=== PATIENT | female | born 1970 | race Caucasian/White ===

== ENCOUNTER → 2019-08-08 | Outpatient (CLI) | payer OTHER ==
--- NOTE | 2019-08-09 11:16 | MM ---
Reason for exam: screening (asymptomatic). Last mammogram was performed 3 years and 4 months ago. History: Patient is postmenopausal and history of other cancer. Physical Findings: A clinical breast exam by your physician is recommended on an annual basis and results should be correlated with mammographic findings. MG 3D Screening Mammo W/Cad Bilateral CC and MLO view(s) were taken. Prior study comparison: April 15, 2016, bilateral MG 3d screening mammo w/cad. April 06, 2014, bilateral MG screening mammo w CAD. Medial far posterior left breast focal asymmetry appears new. ASSESSMENT: Incomplete: need additional imaging evaluation, BI-RAD 0 RECOMMENDATION: Special view mammogram of the left breast. (3D) If lesion persists on supplemental views, image directed ultrasound is recommended. [facility] will attempt to contact patient to return for supplemental views and ultrasound if indicated.
== END | disposition home or self-care (01) ==
LOC: RADMAMWWP 09:22
PROVIDERS: ATTEND Family Medicine
DX: Z12.31 Encounter for screening mammogram for malignant neoplasm of breast (principal)
CPT/HCPCS: 77063; 77067

== ENCOUNTER → 2019-08-22 | Outpatient (CLI) | payer OTHER ==
--- NOTE | 2019-08-22 11:28 | ECHOS ---
STRESS ECHOCARDIOGRAM DATE OF SERVICE: 08/22/2019 INDICATIONS: Chest pain. MEDICATIONS: BASELINE HEART RATE: 92 BASELINE BLOOD PRESSURE: 110/55 MAXIMUM HEART RATE: 154 MAXIMUM BLOOD PRESSURE: 135/77 85% MPHR: 145 100% MPHR: 171 METS: 8.5 MAXIMUM STAGE REACHED: III TOTAL EXERCISE TIME: 7 minutes 15 seconds CLINICAL INFORMATION: STRESS DATA: Heart rate 92, pressure is 110/55 mmHg. Baseline EKG showed sinus mechanism. The patient exercised on the treadmill according to Ezekiel protocol for a total of 7 minutes and 15 seconds and achieved 8.5 METs. Max heart rate was 154, which is about 90% of maximum predicted heart rate. Maximum blood pressure was 135/77 mmHg. Clinically the patient did not have any chest pain or discomfort but she developed shortness of breath in response to exercise. The EKG did not show any significant ST or T-wave abnormalities concerning for ischemia. ECHOCARDIOGRAM IMAGES: Echocardiogram images from parasternal long axis view, parasternal short axis view, apical 4 chamber and apical 2 chamber view were obtained as the baseline images, at the peak of the heart rate as well as on recovery and the echocardiogram images showed good augmentation in the left ventricular systolic function without any evidence of wall motion abnormalities concerning for ischemia. CONCLUSION: 1. Excellent exercise tolerance. 2. Normal EKG in response to exercise. 3. Normal echocardiogram in response to exercise. 4. Essentially normal stress echocardiogram for the patient. MMODL / IJN: [id number] /
== END | disposition home or self-care (01) ==
LOC: RADNMMAIN 09:41
PROVIDERS: ATTEND Family Medicine
DX: R07.9 Chest pain, unspecified (principal)
CPT/HCPCS: 93351

== ENCOUNTER → 2019-08-23 | Outpatient (CLI) | payer OTHER ==
--- NOTE | 2019-08-24 13:07 | MM ---
Reason for exam: additional evaluation requested from abnormal screening. Last mammogram was performed less than 1 month ago. History: Patient is postmenopausal and history of other cancer. Physical Findings: Nurse did not find any significant physical abnormalities on exam. MG 3D Work Up W/Cad LT Spot compression XCCM, spot compression LM, and LM view(s) were taken of the left breast. Prior study comparison: August 08, 2019, bilateral MG 3d screening mammo w/cad. April 15, 2016, bilateral MG 3d screening mammo w/cad. The breast tissue is heterogeneously dense. This may lower the sensitivity of mammography. Finding: There is a 12 mm equal density (isodense) mass in the upper inner quadrant of the left breast. These results were verbally communicated with the patient and result sheet given to the patient on 08/23/19. ASSESSMENT: Incomplete: need additional imaging evaluation, BI-RAD 0 RECOMMENDATION: Ultrasound of the left breast.
--- NOTE | 2019-08-24 13:08 | USB ---
Reason for exam: additional evaluation requested from abnormal screening. History: Patient is postmenopausal and history of other cancer. US Breast Workup Limited LT Left limited breast ultrasound including focal area of concern, retroareolar and axilla demonstrates a 0.6 x 0.4 x 0.6cm mixed lesion at 9 o'clock. These results were verbally communicated with the patient and result sheet given to the patient on 08/23/19. ASSESSMENT: Suspicious, BI-RAD 4 RECOMMENDATION: Ultrasound core biopsy of the left breast. Called office with mammographic findings and has scheduled an appointment for the patient for 09/12/19 at 3:[address] Jeffers. Biopsy scheduled for 09/05/19 at 12:20. PRELIMINARY REPORT CALLED AND FAXED TO DR. JEFFERS ON 08/23/19.
== END | disposition home or self-care (01) ==
LOC: RADMAMWWP 13:25
PROVIDERS: ATTEND Family Medicine
DX: R92.8 Other abnormal and inconclusive findings on diagnostic imaging of breast (principal)
CPT/HCPCS: 77061; 77065

== ENCOUNTER → 2019-09-05 | Day surgery (SDC) | payer OTHER ==
[2019-09-05 11:27] VITALS: RESP 16
[2019-09-05 14:05] VITALS: BP 108/72; PULSE 64; TEMP 97.6
--- NOTE | 2019-09-05 16:03 | USB ---
EXAMINATION TYPE: US biopsy breast VAD LT, Postprocedure MG diagnostic mammo LT wo CAD DATE OF EXAM: 09/05/2019 CLINICAL HISTORY: 48-year-old female R92.8 ABNORMAL MAMMOGRAM. TECHNIQUE: Ultrasound guided core biopsy of the left breast COMPARISON: 08/08/2019 and 08/23/2019 FINDINGS: The procedure of ultrasound guided core biopsy was explained to the patient. Benefits, alternatives, and risks were discussed. An informed consent was then obtained. The targeted area, 9:00 position of the left breast was reidentified. However, this has decreased in size in the interval currently measuring 4 x 3 x 2 mm versus 6 x 6 x 4 mm, previously. Currently, it also appears more cystic, possible small cyst cluster. Decision is made to proceed with biopsy and clip placement to determine mammographic correlation. The patient was placed in supine positioning for imaging and for the procedure. The overlying skin was prepped and draped in usual sterile fashion. Lidocaine was used as anesthetic into the skin and subcutaneous tissue up to area of concern in the 9:00 left breast. Under ultrasound guidance, a 13-gauge vacuum-assisted mammotome Elite biopsy gun was used to obtain 4 core samples. The cystic area decompressed after the first pass. Following this, a wing clip was left at the site of biopsy. The patient tolerated the procedure well without any immediate complication. The patient was kept in the radiology department for short stay after the procedure and then discharged home in stable condition. Postprocedure mammogram shows the clip at the 9 o'clock position at the site of a subtle focal asymmetry on the 08/08/2019 mammogram but located more anterior than the intended mammographic target. IMPRESSION: Uncomplicated ultrasound guided core biopsy of suspected tiny cyst cluster in the 9:00 left breast. Clip placement shows that this is discordant with the intended focal asymmetry. As ultrasound shows no additional abnormality in this region, if results from this biopsy are benign, six-month follow-up mammogram can be performed. Full pathology results to follow. Pathology Results: Benign LEFT BREAST, SITE NOT OTHERWISE SPECIFIED (CORE BIOPSIES): Non-proliferative fibrocystic changes. Recommendation Follow up mammogram of the left breast in 6 months. SHANTHI
== END ==
LOC: RADUSWWP 11:00
PROVIDERS: ATTEND Family Medicine
DX: N60.12 Diffuse cystic mastopathy of left breast (principal); R92.8 Other abnormal and inconclusive findings on diagnostic imaging of breast
CPT/HCPCS: 88305; 77065; 19083; A4648; J2001

== ENCOUNTER → 2019-10-10 | Day surgery (SDC) | payer OTHER ==
[2019-10-07 14:45] VITALS: BMI 31.6
[~2019-10-10] MED LIST: LACTATED RINGERS 1,000 ML IV SCH; MIDAZOLAM 2 MG/2 ML VIAL ONE; ONDANSETRON 4 MG/2 ML VIAL IVP ONE; PROPOFOL 10 MG/ML 20 ML VIAL IV ONE; fentaNYL (PF) 50 MCG/ML 2 ML AMP ONE
[2019-10-10 11:46] VITALS: RESP 16; TEMP 97.3
--- NOTE | 2019-10-10 12:43 | P.PCN ---
Date of Procedure: 10/10/19 Description of Procedure: BRIEF HISTORY: Patient is a 49-year-old female presenting for outpatient colonoscopy for screening for malignant neoplasm of the colon. No prior colonoscopies. No family history of colon cancer. No change in bowel habits, blood per rectum or abdominal pain. PROCEDURE PERFORMED: Colonoscopy with polypectomy. PREOPERATIVE DIAGNOSIS: Screening for malignant neoplasm of the colon, no prior colonoscopy. ESTIMATED BLOOD LOSS: Minimal. IV sedation per Anesthesia. PROCEDURE: After informed consent was obtained, the patient, was brought into the endoscopy unit. IV sedation was administered by Anesthesia under continuous monitoring. Digital rectal examination was normal. Initially the Olympus CF-190 flexible video colonoscope was then inserted in the rectum, gradually advanced into the cecum without any difficulty. Careful examination was performed as the scope was gradually being withdrawn. Ileocecal valve and the appendiceal orifice were visualized and appeared normal. Prep was excellent. Mucosa of the cecum, ascending colon, transverse colon, descending colon, sigmoid colon, and rectum appeared normal. Diminutive 2 mm rectal polyp removed with cold forcep polypectomy. Retroflexion was performed in the rectum and no lesions were seen, low-grade internal hemorrhoids noted. The patient tolerated the procedure well. IMPRESSION: Diminutive 2 mm rectal polyp removed with cold forceps. Low-grade internal hemorrhoids. RECOMMENDATIONS: Findings of this examination were discussed with the patient and her family. Okay to resume diet. Okay to resume medications. Await pathology from polypectomy. Anticipate repeat colonoscopy in 5-10 years pending pathology from polypectomy.
[2019-10-10 13:09] VITALS: BP 105/66; PULSE 71
== END ==
LOC: ORWHC2ENDO 11:22
PROVIDERS: ATTEND Internal Medicine
DX: Z12.11 Encounter for screening for malignant neoplasm of colon (principal); K62.1 Rectal polyp; I20.9 Angina pectoris, unspecified; F17.210 Nicotine dependence, cigarettes, uncomplicated; R00.2 Palpitations; E66.9 Obesity, unspecified; M19.90 Unspecified osteoarthritis, unspecified site; Z98.890 Other specified postprocedural states; Z68.31 Body mass index [BMI] 31.0-31.9, adult; Z98.51 Tubal ligation status
CPT/HCPCS: 88305; 45380; J2250; J2405; J3010; J2704

== ENCOUNTER → 2020-08-15 | Outpatient (CLI) | payer BC ==
--- NOTE | 2020-08-15 10:07 | MM ---
Reason for exam: additional evaluation requested from prior study. Last mammogram was performed 11 months ago. History: Patient is postmenopausal and history of other cancer. Benign US biopsy breast VAD LT of the left breast, September 05, 2019. Physical Findings: Nurse did not find any significant physical abnormalities on exam. MG 3D Diag Mammo W/Cad TAD Bilateral CC and MLO view(s) were taken. Prior study comparison: September 05, 2019, left breast MG diagnostic mammo LT wo CAD. August 23, 2019, left breast MG 3d work up w/cad LT. August 08, 2019, bilateral MG 3d screening mammo w/cad. April 15, 2016, bilateral MG 3d screening mammo w/cad. There are scattered fibroglandular densities. No significant new findings when compared with previous films. These results were verbally communicated with the patient and result sheet given to the patient on 08/15/20. ASSESSMENT: Benign, BI-RAD 2 RECOMMENDATION: Follow-up diagnostic mammogram of both breasts in 1 year.
== END | disposition home or self-care (01) ==
LOC: RADMAMWWP 08:47
PROVIDERS: ATTEND Family Medicine
DX: R92.8 Other abnormal and inconclusive findings on diagnostic imaging of breast (principal)
CPT/HCPCS: 77062; 77066

== ENCOUNTER → 2021-04-05 | Day surgery (SDC) | payer BC ==
[2021-04-03 15:49] VITALS: BMI 34.9
[~2021-04-05] MED LIST changes: +BUPIVACAINE (PF) 0.25% 30 ML VIAL SQ ONE; +DEXAMETHASONE SOD PHOSPHATE 4 MG/ML 1 ML VIAL IV ONE; +FAMOTIDINE 20 MG/2 ML VIAL IVP ONE; +HYDROcodone/APAP 5-325MG 1 EACH TAB ONE; +HYDROcodone/APAP 5-325MG 1 EACH TAB PO ONE; +HYDROmorphone (PF) 1 MG/ML ONE; +HYDROmorphone 1 MG/ML 1 ML SYRINGE ONE; +KETOROLAC 15 MG/ML 1 ML VIAL IVP ONE; +LACTATED RINGERS 1,000 ML IV ONE; -LACTATED RINGERS 1,000 ML IV SCH; +LIDOCAINE 1% (10MG/ML) FOR IV START INTRADERMA ONE; +LIDOCAINE 1% INJ 10MG/ML (20 ML MDV) ONE; +MIDAZOLAM 2 MG/2 ML VIAL IV PRN; +MIDAZOLAM 2 MG/2 ML VIAL IVP ONE; +ONDANSETRON 4 MG/2 ML VIAL ONE; +SCOPOLAMINE 1.5MG/72HR PATCH TRANSDERM ONE; +ceFAZolin 1,000 MG in SODIUM CHLORIDE 0.9% 1,000 ML IRRIGATION ONE
[2021-04-05] MEDS: LACTATED RINGERS 1,000 ML IV SCH ×2 (11:35→16:43)
[2021-04-05] MEDS: HYDROmorphone 0.5 MG/0.5 ML SYRINGE IVP PRN ×4 (11:36→14:42)
[2021-04-05 11:48] VITALS: RESP 16
[2021-04-05 14:14] VITALS: TEMP 97.3
[2021-04-05 15:38] VITALS: BP 117/80; PULSE 82
--- NOTE | 2021-04-05 16:24 | P.OP ---
Date of Procedure: 04/05/21 Preoperative Diagnosis: Hallux rigidus right foot Postoperative Diagnosis: Same Procedure(s) Performed: First metatarsal phalangeal joint arthrodesis right foot Implants: 1 crosscheck first metatarsal phalangeal joint arthrodesis plate screws 1 mL of AlloMatrix Anesthesia: DORCAS Surgeon: Javi Claire Estimated Blood Loss (ml): 3 Pathology: none sent Condition: stable Disposition: PACU Indications for Procedure: Painful hallux rigidus unresponsive to conservative treatment Operative Findings: Severe degeneration of the articular cartilage of the first metatarsal head and base of the proximal phalanx great toe. Significant osteophytic formation on the dorsal aspect of the first metatarsal head and base of the proximal phalanx Description of Procedure: The patient was brought into the operative room placed on table supine position. Timeout was taken to confirm correct patient identifiers, correct procedure, and correct site of surgery. When the room was in agreement the patient was induced and placed under general anesthetic. A well-padded tourniquet was placed on the right ankle. Then 20 mL 0.25% Marcaine was injected as right ankle block. And then the right foot was prepped and draped usual manner. The right foot was exsanguinated and the tourniquet inflated to 250 mmHg. Attention directed over the dorsomedial aspect of the first metatarsal phalangeal joint where a linear incision was made between the long extensor tendon and the neurovascular structures. The incision was deepened down to the saphenous tissue careful to identify, avoid, and retract any neurovascular structures and cauterize any bleeding vessels. Dissection was continued through the saphenous layer both medially and laterally to allow exposure to the joint. A capsulotomy was performed just medial to the extensor tendon. All soft tissue was removed from the base of the proximal phalanx as well as the head of the first metatarsal. Initial observation showed significant thinning of the articular cartilage on both surfaces of the joint and exuberant osteophytic formation dorsally and medially and the first metatarsal head as well as a dorsal aspect of the proximal phalanx. A sagittal saw was used to resect all the osteophytes. And all of the roughened edges were smoothed with a hand rasp. The joint was then distracted and a guidewire inserted the central aspect of the first metatarsal head which was then advanced into medullary canal parallel to the long axis. 20 mm concave reamer was then used to remove the subchondral bone and remaining articular cartilage to expose bleeding medullary bone. The guidewire was removed and was then used to fenestrate the joint surfaces to promote bleeding and bony ingrowth. Then the guidewire was inserted the base of the proximal phalanx centrally located advanced into the medullary canal parallel to the long access. The convex reamer was then used to remove the Subchondral bone and remaining cartilage down to bleeding medullary bone. The guidewire was removed and was also used to fenestrate that part of the joint surface. The wound is then thoroughly irrigated with saline. AlloMatrix was prepped on the back table and then was placed between the arthrodesis segments. Then a crosscheck first metatarsal phalangeal joint plate was positioned over the joint and then aligned under fluoroscopy. Once alignment of both the joint and plate were satisfactory there were temporarily fixated with threaded olive wires. A locking screw was placed through one of the distal holes in the proximal phalanx. The threaded olive wire in the distal phalanx was removed then another locking screw placed distally. The drill guide was then placed in the compression slot and the drill advanced across the arthrodesis site. And then the compression screw was placed through the plate which then allowed the arthrodesis site to compress noted with extrusion of the AlloMatrix. Additional locking screws were then placed in the proximal holes of the plate. Final fluoroscopic imaging showed that there was good bony contact at the arthrodesis site and proper alignment great toe and proper placement of all hardware. Wound is irrigated thoroughly with saline. Deep closure done with 2-0 Vicryl. Skin closure done with 4-0 Monocryl. And skin closure done with 3-0 Stratafix in a running subcuticular manner. Dermal glue and Steri-Strips are applied. An Arthrex jumpstart dressing was placed over the incision. A dry sterile dressings applied to the right foot. The tourniquet was released and capillary refill return to all digits on the right foot. The patient then placed in a well-padded, well molded plaster posterior mold sugar tong splint. Ankle was held in neutral position until the splint was dried. Then anesthesia was rev ersed and the patient was taken recovery vital signs stable
== END | disposition home or self-care (01) ==
LOC: OR 11:14
PROVIDERS: ATTEND Podiatrist
DX: M20.21 Hallux rigidus, right foot (principal); H91.90 Unspecified hearing loss, unspecified ear; F17.200 Nicotine dependence, unspecified, uncomplicated; Z97.3 Presence of spectacles and contact lenses; Z98.51 Tubal ligation status; Z98.890 Other specified postprocedural states; Z79.1 Long term (current) use of non-steroidal anti-inflammatories (NSAID); Z79.899 Other long term (current) drug therapy
CPT/HCPCS: 81025; 28750; C1713 ×2; J2250; J1100; J0690 ×2; J2405; J2001; J3010; J1170 ×2; J2704; J1790

== ENCOUNTER → 2021-12-04 | Outpatient (CLI) | payer BC ==
--- NOTE | 2021-12-06 12:07 | MM ---
Reason for exam: screening (asymptomatic). Last mammogram was performed 1 year and 4 months ago. History: Patient is postmenopausal and has history of other cancer at age 44. Benign US biopsy breast VAD LT of the left breast, September 05, 2019. Physical Findings: A clinical breast exam by your physician is recommended on an annual basis and results should be correlated with mammographic findings. MG 3D Screening Mammo W/Cad Bilateral CC and MLO view(s) were taken. Prior study comparison: August 15, 2020, bilateral MG 3d diag mammo w/cad TAD. September 05, 2019, left breast MG diagnostic mammo LT wo CAD. August 08, 2019, bilateral MG 3d screening mammo w/cad. April 15, 2016, bilateral MG 3d screening mammo w/cad. There are scattered fibroglandular densities. No significant changes when compared with prior studies. ASSESSMENT: Benign, BI-RAD 2 RECOMMENDATION: Routine screening mammogram of both breasts in 1 year.
== END | disposition home or self-care (01) ==
LOC: RADMAMWWP 07:17
PROVIDERS: ATTEND Family Medicine
DX: Z12.31 Encounter for screening mammogram for malignant neoplasm of breast (principal); Z78.0 Asymptomatic menopausal state
CPT/HCPCS: 77063; 77067

== ENCOUNTER → 2023-03-02 | Outpatient (CLI) | payer BC ==
--- NOTE | 2023-03-02 09:27 | MM ---
Reason for Exam: Screening (asymptomatic). Last mammogram was performed 1 year(s) and 3 month(s) ago. Patient History: Menarche at age 13. First Full-Term at age 19. Postmenopausal. 09/05/2019, Benign Core Biopsy on the left side. Risk Values: Lyndsey 5 year model risk: 1.1%. NCI Lifetime model risk: 8.2%. Prior Study Comparison: 09/05/2019 Left Diagnostic Mammogram, [facility]. 08/15/2020 Bilateral Diagnostic Mammogram, [facility]. 12/04/2021 Bilateral Screening Mammogram, [facility]. Tissue Density: There are scattered fibroglandular densities. Findings: Analyzed By CAD. Left breast biopsy clip. There is no suspicious group of microcalcifications or new suspicious mass in either breast. Overall Assessment: Benign, BI-RAD 2 Management: Screening Mammogram of both breasts in [address] [facility] will attempt to contact patient to return for supplemental views and ultrasound if indicated. Patient should continue monthly self-breast exams. A clinical breast exam by your physician is recommended on an annual basis. This exam should not preclude additional follow-up of suspicious palpable abnormalities. Note on Lyndsey scores and lifetime risk: 1. A Lyndsey score greater than 3% is considered moderate risk. If this is the case, consider specialist referral to assess eligibility for a risk reducing agent. 2. If overall lifetime risk for the development of breast cancer is 20% or higher, the patient may qualify for future screening with alternating mammogram and breast MRI. Electronically signed and approved by: Samuel Jenkins DO
== END | disposition home or self-care (01) ==
LOC: RADMAMWWP 08:08
PROVIDERS: ATTEND Family Medicine
DX: Z12.31 Encounter for screening mammogram for malignant neoplasm of breast (principal); Z78.0 Asymptomatic menopausal state
CPT/HCPCS: 77063; 77067

== ENCOUNTER → 2024-02-03 | Outpatient (CLI) | payer BC ==
--- NOTE | 2024-02-03 09:00 | MM ---
Reason for Exam: Clinical finding. Last screening mammogram was performed 11 month(s) ago. Indicated Problems: Lump or thickening of the right side for 5 Year(s). Patient History: Menarche at age 13. First Full-Term at age 19. Postmenopausal. 09/05/2019, Benign Core Biopsy on the left side. Risk Values: Lyndsey 5 year model risk: 1.1%. NCI Lifetime model risk: 8.1%. Prior Study Comparison: 08/15/2020 Bilateral Diagnostic Mammogram, [facility]. 12/04/2021 Bilateral Screening Mammogram, [facility]. 03/02/2023 Bilateral MG 3D screening mammo w/cad, [facility]. Tissue Density: There are scattered areas of fibroglandular density. Findings: There is a high density spiculated mass within the posterior 3:00 position corresponding to the palpable abnormality. This measures 2.8 cm in diameter and it is 5 cm from the nipple. Ultrasound is recommended for additional evaluation. Left breast:No suspicious groups of microcalcifications, spiculated or lobular masses, architectural distortion or other secondary signs of malignancy are mammographically apparent.There is a high density spiculated mass within the posterior 3:00 position corresponding to the palpable abnormality highly suggestive for malignancy. This measures 2.8 cm in diameter and it is 5 cm from the nipple. Ultrasound is recommended for additional evaluation. Left breast:No suspicious groups of microcalcifications, spiculated or lobular masses, architectural distortion or other secondary signs of malignancy are mammographically apparent. Overall Assessment: Incomplete: need additional imaging evaluation, BI-RAD 0 Management: Diagnostic Breast Ultrasound of the right breast. A negative mammogram report should not preclude additional follow up of suspicious palpable abnormalities. Patient should continue monthly self breast exam. A clinical breast exam by your physician is recommended on an annual basis and results should be correlated with mammographic findings. Note on Lyndsey scores and lifetime risk: 1. A Lyndsey score greater than 3% is considered moderate risk. If this is the case, consider specialist referral to assess eligibility for a risk reducing agent. 2. If overall lifetime risk for the development of breast cancer is 20% or higher, the patient may qualify for future screening with alternating mammogram and breast MRI. Electronically signed and approved by: Shayne Gross D.O. Radiologis
--- NOTE | 2024-02-03 09:35 | USB ---
Reason for Exam: Clinical finding. Patient History: Menarche at age 13. First Full-Term at age 19. Postmenopausal. 09/05/2019, Benign Core Biopsy on the left side. Risk Values: Lyndsey 5 year model risk: 1.1%. NCI Lifetime model risk: 8.1%. Technique: Method: Targeted. Prior Study Comparison: 08/15/2020 Bilateral Diagnostic Mammogram, [facility]. 12/04/2021 Bilateral Screening Mammogram, [facility]. 03/02/2023 Bilateral MG 3D screening mammo w/cad, [facility]. Findings: The upper inner quadrant of the right breast, the axilla of the right breast and the retroareolar of the right breast were scanned. There is a 2.6 x 3.0 x 1.7 cm irregular spiculated hypoechoic mass corresponding to the mammographic abnormality. Findings are highly suggestive for malignancy. Within the right axilla there is a lymph node with a partially thickened cortex measuring 0.4 cm. This could be suspicious for early metastasis. No additional breast findings by ultrasound. Overall Assessment: Highly suggestive of malignancy, BI-RAD 5 Management: Surgical Consultation of the right breast. Ultrasound Core Biopsy of the right breast. A clinical breast exam by your physician is recommended on an annual basis and results should be correlated with mammographic findings. This exam should not preclude additional follow-up of suspicious palpable abnormalities. Results were given to the patient verbally at the time of exam. Electronically signed and approved by: Shayne Gross D.O. Radiologis
== END | disposition home or self-care (01) ==
LOC: RADMAMWWP 08:08
PROVIDERS: ATTEND Family Medicine
DX: N63.15 Unspecified lump in the right breast, overlapping quadrants (principal); N63.12 Unspecified lump in the right breast, upper inner quadrant; R92.323 Mammographic fibroglandular density, bilateral breasts; Z78.0 Asymptomatic menopausal state
CPT/HCPCS: 77062; 77066

== ENCOUNTER → 2024-02-03 | Outpatient (CLI) | payer BC ==
--- NOTE | 2024-02-03 11:35 | P.GSCN ---
History of Present Illness Consult date: 02/03/24 Reason for Consult: abnormal right breast mammogram History of present illness: Andreina is a 53 year old female who had a bilateral mammogram on 02-03-24. This led to a right breast ultrasound. This showed a 2.6 by 3 cm lesion in the UIQ of the right breast as well as an enlarged node with the cortex 0.4 cm. The patient did not have anything of concern in the left breast. The radiographs were personally reviewed with Dr. Bolden. The patient states her boyfriend found a lump in her right breast the end of December. She does not complain of any pain in her breast. The patient states that since it was brought to her attention she can feel it and it feels like it has gotten slightly larger. She is not complaining of any nipple discharge or skin changes. She has not had any recent trauma or infection in her breast. She is never had any surgery on her breast. Caffeine: 1 cup/day nicotine: 1/2 PPD for 32 years, stopped July 2021 chocolate: weekly BCP: for about 2 years in remote past hormones: none Family History: maternal aunt: breast cancer Hormonal History: menarche: 12 , breast fed: no, age at first : 19 menopause: Uterine ablation approximately 2009 Hormones: Negative Surgical history: right foot back surgery right carpel tunnel Medical History: adderol for focus Social History: Nicotine: As above Alcohol: Several times a week Drugs: Negative Review of Systems - Constitutional Reports sweats - EENT Eyes: denies blurred vision Ears: bilateral: tinnitus Ears, nose, mouth and throat: Denies dysphagia - Breasts bilateral: as per HPI - Cardiovascular Denies chest pain, Denies shortness of breath - Respiratory Denies cough, Denies 7 - Gastrointestinal Reports as per HPI - Genitourinary Genitourinary: Denies dysuria, Denies hematuria Menstruation: Reports postmenopausal - Musculoskeletal Reports myalgias - Integumentary Denies rash, Denies unusual bruising - Neurological Denies headaches, Denies syncope - Psychiatric Reports as per HPI - Endocrine Reports as per HPI - Hematologic/Lymphatic Reports as per HPI - Allergic/Immunologic Reports as per HPI Past Medical History Past Medical History: Chest Pain / Angina, Osteoarthritis (OA) Additional Past Medical History / Comment(s): SQUAMOUS CELL SKIN CANCER, occ palpitations, History of Any Multi-Drug Resistant Organisms: None Reported Past Surgical History: Back Surgery, Tubal Ligation, Uterine Ablation Additional Past Surgical History / Comment(s): laminectomy, skin cancer removed from chest and leg, colonoscopy Past Anesthesia/Blood Transfusion Reactions: No Reported Reaction, Unable to Obtain Additional Past Anesthesia/Blood Transfusion Reaction / Comm: no family hx Smoking Status: Current every day smoker - Past Family History Mother Family Medical History: Unable to Obtain Medications and Allergies Home Medications Medication Instructions Recorded Confirmed Type Multivitamins, Thera [Multivitamin 1 tab PO DAILY 09/05/19 04/05/21 History (formulary)] Dextroamphetamine/Amphetamine 20 mg PO QAM 04/03/21 04/05/21 History [Adderall Xr] Ibuprofen [Motrin] 800 mg PO Q8H PRN 04/03/21 04/05/21 History HYDROcodone/APAP 5-325MG [[place] 1 tab PO Q6HR PRN 7 Days #30 tab 04/05/21 Rx 5-325] Allergies Allergy/AdvReac Type Severity Reaction Status Date / Time No Known Allergies Allergy Verified 04/05/21 11:36 Surgical - Exam - General no distress - Eyes normal ocular movement - ENT no hearing loss - Neck trachea midline - Respiratory normal respiratory effort, clear to auscultation - Cardiovascular Heart Sounds: normal: S1, S2 - Abdomen Abdomen: soft, non tender, no guarding, no rigid, no rebound - Integumentary normal turgor - Musculoskeletal normal gait - Psychiatric oriented to time, oriented to person, oriented to place, speech is normal, memory intact Breast Exam: BRA: 38 C Inspection: Bilateral grade 2 ptosis Palpation: Right breast: Multi positional exam fibrocystic changes, approximately 2 x 3 cm fullness upper inner quadrant right breast corresponding to that which is seen radiographically Right axilla: No discrete adenopathy of concern Left breast: Multi positional exam fibrocystic changes Left axilla: No adenopathy of concern Results Mammogram and ultrasound personally reviewed with Dr. Gross Assessment and Plan Assessment: Radiographic abnormality right breast Palpable abnormality right breast corresponding to radiographic abnormality Plan: Ultrasound-guided core biopsy right breast Ultrasound-guided core biopsy right axilla enlarged lymph node Follow-up here after biopsy CC: Dr. Jeffers
[2024-02-03 14:37] VITALS: BP 146/89; PULSE 86; RESP 16; TEMP 98.1
== END ==
LOC: WWCWWP 09:57
PROVIDERS: ATTEND Surgery
DX: N63.12 Unspecified lump in the right breast, upper inner quadrant (principal); F17.210 Nicotine dependence, cigarettes, uncomplicated; Z80.3 Family history of malignant neoplasm of breast

== ENCOUNTER → 2024-02-04 | Day surgery (SDC) | payer BC ==
--- NOTE | 2024-02-04 16:53 | USB ---
Risk Values: Lyndsey 5 year model risk: 1.1%. NCI Lifetime model risk: 8.1%. Prior Study Comparison: 12/04/2021 Bilateral Screening Mammogram, [facility]. 03/02/2023 Bilateral MG 3D screening mammo w/cad, [facility]. 02/03/2024 Bilateral MG 3D diag mammo wo cad TAD, [facility]. Pathology Description: Location: axilla. Marker Left Behind. Needle Type: Bard 14g x 10cm Cores: 3 Skin Nicks: 1 Gauge: 18 The procedure of ultrasound guided core biopsy was explained to the patient. Benefits, alternatives, and risks were discussed. An informed consent was then obtained. A timeout was performed. The patient was placed in supine positioning for imaging and for the procedure. The overlying skin was prepped and draped in usual sterile fashion. Lidocaine was used as anesthetic into the skin and subcutaneous tissue up to area of concern in the right breast. A small skin sierra was made with surgical scalpel. Under ultrasound guidance, a 12-gauge vacuum assisted biopsy gun device was used to obtain 6 core samples. A biopsy clip was left in lesion. Hydromark coil core marker was placed. Complete new set up was performed. The patient was placed in supine positioning for imaging and for the procedure. The overlying skin was prepped and draped in usual sterile fashion. Lidocaine was used as anesthetic into the skin and subcutaneous tissue up to area of concern in the right axilla. Under ultrasound guidance, a 12-gauge vacuum assisted biopsy gun device was used to obtain 3 core samples within the thickened portion of the lymph node cortex. Hydromark butterfly core marker was placed adjacent to the lymph node cortex. The patient tolerated the procedure well without any immediate complication. The patient was kept in the radiology department for short stay after the procedure and then discharged home in stable condition. Postprocedure mammogram: The patient was transferred to mammography for physician ordered post procedure mammogram for clip placement verification. Impression: Successful ultrasound guided core biopsies of areas of concern in the right breast and right axillary lymph node, full pathology results to follow. Recommendations: 1. Recommendations are pending pathology results. Pathology Results: Results pending. Electronically signed and approved by: Shayne Gross D.O. Radiologis
--- NOTE | 2024-02-15 13:41 | MM ---
Reason for Exam: Post Procedure Mammogram. Last screening mammogram was performed less than 1 month ago. Patient History: Menarche at age 13. First Full-Term at age 19. Postmenopausal. 02/04/2024, US breast needle core addl RT on the Right side. 09/05/2019, Benign Core Biopsy on the left side. Risk Values: Lyndsey 5 year model risk: 1.4%. NCI Lifetime model risk: 10.1%. Prior Study Comparison: 12/04/2021 Bilateral Screening Mammogram, [facility]. 03/02/2023 Bilateral MG 3D screening mammo w/cad, [facility]. 02/03/2024 Bilateral MG 3D diag mammo wo cad TAD, [facility]. Tissue Density: Right: There are scattered areas of fibroglandular density. Pathology Description: Location: 2 o'clock. Marker Left Behind. Needle Type: Mammotome Cores: 6 Skin Nicks: 1 The procedure of ultrasound guided core biopsy was explained to the patient. Benefits, alternatives, and risks were discussed. An informed consent was then obtained. A timeout was performed. The patient was placed in supine positioning for imaging and for the procedure. The overlying skin was prepped and draped in usual sterile fashion. Lidocaine was used as anesthetic into the skin and subcutaneous tissue up to area of concern in the right breast. A small skin sierra was made with surgical scalpel. Under ultrasound guidance, a 12-gauge vacuum assisted biopsy gun device was used to obtain 6 core samples. A biopsy clip was left in lesion. Hydromark coil core marker was placed. Complete new set up was performed. The patient was placed in supine positioning for imaging and for the procedure. The overlying skin was prepped and draped in usual sterile fashion. Lidocaine was used as anesthetic into the skin and subcutaneous tissue up to area of concern in the right axilla. Under ultrasound guidance, a 12-gauge vacuum assisted biopsy gun device was used to obtain 3 core samples within the thickened portion of the lymph node cortex. Hydromark butterfly core marker was placed adjacent to the lymph node cortex. The patient tolerated the procedure well without any immediate complication. The patient was kept in the radiology department for short stay after the procedure and then discharged home in stable condition. Postprocedure mammogram: The patient was transferred to mammography for physician ordered post procedure mammogram for clip placement verification. Impression: Successful ultrasound guided core biopsies of areas of concern in the right breast and right axillary lymph node, full pathology results to follow. Recommendations: 1. Recommendations are pending pathology results. Pathology Results: Result: Malignant, Invasive ductal carcinoma. Pathology and radiology were reviewed. Findings are concordant. A. RIGHT BREAST, 2:00, NEEDLE CORE BIOPSY: Invasive high grade ductal carcinoma, see surgical pathology cancer case summary and comment. B. RIGHT AXILLA, CORE BIOPSY: Benign lymph node tissue. CK7 immunostain is confirmatory (control appropriate). Overall Assessment: Malignant Assessment: MG diagnostic mammo RT wo CAD - Right: Known biopsy proven malignancy, BI-RAD 6. Management: Surgical Consultation of the right breast. Electronically signed and approved by: Shayne Gross D.O. Radiologis
== END ==
LOC: RADUSWWP 12:41
PROVIDERS: ATTEND Surgery
DX: C50.211 Malignant neoplasm of upper-inner quadrant of right female breast (principal); R92.8 Other abnormal and inconclusive findings on diagnostic imaging of breast
CPT/HCPCS: 88305; 88342; 88341; 77065; 19083; 19084; A4648

== ENCOUNTER → 2024-02-24 | Outpatient (CLI) | payer BC ==
[2024-02-24 10:55] VITALS: BP 143/90; PULSE 90; RESP 16; TEMP 98.1
--- NOTE | 2024-02-24 11:39 | P.PN ---
Subjective Progress Note Date: 02/24/24 abnormal right breast mammogram History of present illness: Andreina is a 53 year old female who had a bilateral mammogram on 02-03-24. This led to a right breast ultrasound. This showed a 2.6 by 3 cm lesion in the UIQ of the right breast as well as an enlarged node with the cortex 0.4 cm. The patient did not have anything of concern in the left breast. The radiographs were personally reviewed with Dr. Bolden. The patient states her boyfriend found a lump in her right breast the end of December. She does not complain of any pain in her breast. The patient states that since it was brought to her attention she can feel it and it feels like it has gotten slightly larger. She is not complaining of any nipple discharge or skin changes. She has not had any recent trauma or infection in her breast. She is never had any surgery on her breast. core biopsy on 02-04-24 [id number]; stage IIB Ultrasound-guided core biopsy right axilla enlarged lymph node (-) case presented at tumor board on 02-23-24 recommend neoadjuvant chemotherapy Caffeine: 1 cup/day nicotine: 1/2 PPD for 32 years, stopped July 2021 chocolate: weekly BCP: for about 2 years in remote past hormones: none Family History: maternal aunt: breast cancer Hormonal History: menarche: 12 , breast fed: no, age at first : 19 menopause: Uterine ablation approximately 2009 Hormones: Negative Surgical history: right foot back surgery right carpel tunnel Medical History: adderol for focus Social History: Nicotine: As above Alcohol: Several times a week Drugs: Negative Review of Systems - Constitutional Reports sweats - EENT Eyes: denies blurred vision Ears: bilateral: tinnitus Ears, nose, mouth and throat: Denies dysphagia - Breasts bilateral: as per HPI - Cardiovascular Denies chest pain, Denies shortness of breath - Respiratory Denies cough - Gastrointestinal Reports as per HPI - Genitourinary Genitourinary: Denies dysuria, Denies hematuria Menstruation: Reports postmenopausal - Musculoskeletal Reports myalgias - Integumentary Denies rash, Denies unusual bruising - Neurological Denies headaches, Denies syncope - Psychiatric Reports as per HPI - Endocrine Reports as per HPI - Hematologic/Lymphatic Reports as per HPI - Allergic/Immunologic Reports as per HPI Past Medical History Past Medical History: Chest Pain / Angina, Osteoarthritis (OA) Additional Past Medical History / Comment(s): SQUAMOUS CELL SKIN CANCER, occ palpitations, History of Any Multi-Drug Resistant Organisms: None Reported Past Surgical History: Back Surgery, Tubal Ligation, Uterine Ablation Additional Past Surgical History / Comment(s): laminectomy, skin cancer removed from chest and leg, colonoscopy Past Anesthesia/Blood Transfusion Reactions: No Reported Reaction, Unable to Obtain Additional Past Anesthesia/Blood Transfusion Reaction / Comm: no family hx Smoking Status: Current every day smoker - Past Family History Mother Family Medical History: Unable to Obtain Medications and Allergies Home Medications Medication Instructions Recorded Confirmed Type Multivitamins, Thera [Multivitamin 1 tab PO DAILY 09/05/19 04/05/21 History (formulary)] Dextroamphetamine/Amphetamine 20 mg PO QAM 04/03/21 04/05/21 History [Adderall Xr] Ibuprofen [Motrin] 800 mg PO Q8H PRN 04/03/21 04/05/21 History HYDROcodone/APAP 5-325MG [[place] 1 tab PO Q6HR PRN 7 Days #30 tab 04/05/21 Rx 5-325] Allergies Allergy/AdvReac Type Severity Reaction Status Date / Time No Known Allergies Allergy Verified 04/05/21 11:36 Objective - Vital Signs Vital signs: Vital Signs Temp 98.1 F 02/24/24 10:49 Pulse 90 02/24/24 10:49 Resp 16 02/24/24 10:49 BP 143/90 02/24/24 10:49 Pulse Ox 97 02/24/24 10:49 FiO2 Intake & Output 02/23/24 02/24/24 02/24/24 18:59 06:59 18:59 Weight 90.718 kg - Constitutional General appearance: Present: cooperative - EENT Eyes: Present: EOMI ENT: Present: hearing grossly normal - Neck Neck: Present: normal ROM - Respiratory Respiratory: bilateral: CTA - Cardiovascular Heart sounds: normal: S1, S2 - Gastrointestinal General gastrointestinal: Present: soft - Integumentary Integumentary: Present: normal turgor - Musculoskeletal Musculoskeletal: Present: gait normal - Psychiatric Psychiatric: Present: A&O x's 3, appropriate affect, intact judgment & insight - Additional findings Additional findings: Breast Exam: BRA: 38 C Inspection: Bilateral grade 2 ptosis Palpation: Right breast: Multi positional exam fibrocystic changes, approximately 2 x 3 cm fullness upper inner quadrant right breast corresponding to that which is seen radiographically; biopsy site clean and dry Right axilla: No discrete adenopathy of concern Left breast: Multi positional exam fibrocystic changes Left axilla: No adenopathy of concern Assessment and Plan Assessment: Impression: Radiographic abnormality right breast/ biopsy proven invasive ductal cancer Palpable abnormality right breast corresponding to radiographic abnormality presented at tumor board/02-23-24 recommend neoadjuvant chemotherapy Plan: genetic testing medical oncology appointment radiation oncology appointment follow up in 2 months I have had a discussion with the patient and her boyfriend regarding treatment options, and need for neoadjuvant therapy. They are going to see medical oncology next week. CC: Dr. Jeffers
== END ==
LOC: WWCWWP 10:22
PROVIDERS: ATTEND Surgery
DX: R92.8 Other abnormal and inconclusive findings on diagnostic imaging of breast (principal); C50.211 Malignant neoplasm of upper-inner quadrant of right female breast; F17.210 Nicotine dependence, cigarettes, uncomplicated; N63.10 Unspecified lump in the right breast, unspecified quadrant; Z80.3 Family history of malignant neoplasm of breast; Z17.1 Estrogen receptor negative status [ER-]

== ENCOUNTER → 2024-03-02 | Outpatient (CLI) | payer BC ==
--- NOTE | 2024-03-04 08:54 | BMR ---
EXAM DATE: 03/02/2024 EXAM DESCRIPTION: MRI-Breast Bilat (W/WO Contrast) INDICATION: Right breast carcinoma. Pre-surgical planning. COMPARISON: Recent mammogram and ultrasound dated 02/03/2024 CONTRAST: 6.1 cc Gadavist contrast material. TECHNIQUE: Multi sequence multiplanar MR imaging of the breasts was obtained. Subsequently, after the uneventful intravenous administration of Gadavist contrast material, 6 dynamic sequences were then obtained. Post processing was performed utilizing a [employer] CAD workstation at [facility]. Interpretation was done at [facility]. FINDINGS: The breasts are composed of scattered fibroglandular tissue. There is mild background parenchymal enhancement identified. Non enlarged to prominent lymph nodes are present in the bilateral axillary regions. No axillary or internal mammary lymphadenopathy. No focal skin thickening or nipple retraction. The bone marrow signal intensity is unremarkable. No adenopathy in the visualized mediastinum. T2 weighted images demonstrated no dominant cystic lesion in either breast. Post contrast images demonstrated irregular enhancing mass with associated signal void and washout kinetics in the right breast at 2 o'clock position 6.5 cm posterior to the nipple measuring 3.2 x 2.5 x 3.0 cm (601 image 151 and series 503, image 526) consistent with known primary. There is a linear 3.5 x 1.1 cm non mass enhancement with progressive and persistent kinetics from the afore mention right breast dominant mass 2 o'clock position extending anteriorly and medially to a satellite nodules measuring 1.0 x 0.5 x 0.6 cm (CT image 503 image 486 and series 601, image 147) at 3 o'clock position about 2.8 cm posterior to the nipple. No abnormal enhancement in the left breast to suggest malignancy. There is no abnormal signal or enhancement in the chest wall or subcutaneous tissue. IMPRESSION: 1. A 3.2 cm irregular enhancing mass in the right breast at 2 o'clock position 6.5 cm posterior to the nipple consistent with known primary. 2. A 3.5 cm linear non mass enhancement extending anteriorly from afore mention right breast mass at 2 o'clock position to a 1.0 cm satellite nodule at 3 o'clock position 2.8 cm posterior to the nipple could represent DCIS. A second- look ultrasound examination with possible biopsy is recommended if it could impact the surgical management. 3. No axillary or internal mammary lymphadenopathy. Prominent lymph nodes with benign morphology are stable in the axillary regions. 4. No MR evidence of malignancy in the left breast. Final assessment: BI-RADS category 6: Known malignancy: Appropriate management is recommended. MTDD
== END | disposition home or self-care (01) ==
LOC: RADMRIMAIN 20:45
PROVIDERS: ATTEND Internal Medicine Hematology & Oncology
DX: C50.211 Malignant neoplasm of upper-inner quadrant of right female breast (principal)
CPT/HCPCS: 77049; A9585

== ENCOUNTER → 2024-03-04 | Outpatient (CLI) | payer BC ==
--- NOTE | 2024-03-04 18:58 | CA ---
Transthoracic Echo Report Name: Andreina Sommer Age: 53 Gender: F : 1970 Exam Date: 03/04/2024 16:19 Exam Location: [place] [facility] Ht (in): 64 Wt (lb): 211 Ordering Physician: Josh Virk MD Attending/Referring Phys: Manager Of Maintenance Vanessa Velez RDCS Procedure CPT: Indications: Z01.818 pre chemo Cardiac Hx: Technical Quality: Good Contrast 1: Total Dose (mL): Contrast 2: Total Dose (mL): MEASUREMENTS (Male / Female) Normal Values 2D ECHO LV Diastolic Diameter PLAX 4.2 cm 4.2 - 5.9 / 3.9 - 5.3 cm LV Systolic Diameter PLAX 2.8 cm IVS Diastolic Thickness 1.1 cm 0.6 - 1.0 / 0.6 - 0.9 cm LVPW Diastolic Thickness 0.9 cm 0.6 - 1.0 / 0.6 - 0.9 cm LV Relative Wall Thickness 0.5 RV Internal Dim ED PLAX 2.5 cm LVOT Diameter 2.3 cm LV Diastolic Volume MOD BP 90.8 cm??? 67 - 155 / 56 - 104 cm??? LV Systolic Volume MOD BP 31.7 cm??? 22 - 58 / 19 - 49 cm??? LV Ejection Fraction MOD BP 65.1 % >= 55 % LV Cardiac Index MOD BP 2090.3 cm???/min???m??? LV Diastolic Volume MOD 4C 89.6 cm??? LV Systolic Volume MOD 4C 32.2 cm??? LV Ejection Fraction MOD 4C 64.0 % LV Cardiac Index MOD 4C 2026.8 cm???/min???m??? LV Diastolic Length 4C 8.4 cm LV Systolic Length 4C 6.7 cm LV Diastolic Volume MOD 2C 91.2 cm??? LV Systolic Volume MOD 2C 31.0 cm??? LV Ejection Fraction MOD 2C 66.0 % LV Cardiac Index MOD 2C 2125.7 cm???/min???m??? LV Diastolic Length 2C 8.7 cm LV Systolic Length 2C 6.6 cm LA Volume 38.0 cm??? 18 - 58 / 22 - 52 cm??? LA Volume Index 17.9 cm???/m??? 16 - 28 cm???/m??? Ascending Aorta Diameter 3.4 cm DOPPLER AV Peak Velocity 151.1 cm/s AV Peak Gradient 9.1 mmHg AV Mean Velocity 108.3 cm/s AV Mean Gradient 5.1 mmHg AV Velocity Time Integral 31.7 cm LVOT Peak Velocity 114.5 cm/s LVOT Peak Gradient 5.2 mmHg LVOT Velocity Time Integral 22.6 cm LVOT Stroke Volume 94.9 cm??? LVOT Stroke Volume Index 47.4 ml/m??? LVOT Cardiac Index 3354.8 cm???/min???m??? AV Area Cont Eq vti 3.0 cm??? AV Area Cont Eq pk 3.2 cm??? MV Area PHT 4.0 cm??? Mitral E Point Velocity 87.6 cm/s Mitral A Point Velocity 58.5 cm/s Mitral E to A Ratio 1.5 MV Deceleration Time 189.5 ms PV Peak Velocity 106.9 cm/s PV Peak Gradient 4.6 mmHg FINDINGS Left Ventricle Left ventricular ejection fraction is estimated at 60-65 %. Mildly increased septal wall thickness. Left ventricular cavity size normal. No obvious regional wall motion abnormalities. Normal average global longitudinal strain of the left ventricle with a value of - 21 %. Right Ventricle Normal right ventricular size and function. Unable to estimate the right ventricular systolic pressure. Right Atrium Normal right atrial size. Left Atrium Normal left atrial size. Mitral Valve Structurally normal mitral valve. No evidence for mitral valve prolapse. No mitral stenosis. Trace mitral regurgitation. Aortic Valve Trileaflet aortic valve. No aortic valve stenosis or regurgitation. Tricuspid Valve Structurally normal tricuspid valve. No tricuspid stenosis. Trace tricuspid regurgitation. Pulmonic Valve Structurally normal pulmonic valve. No pulmonic stenosis. Trace pulmonic regurgitation. Pericardium No pericardial effusion. Aorta Normal size aortic root and proximal ascending aorta. CONCLUSIONS Normal biventricular dimension and systolic function Normal intracardiac valves No evidence of pericardial effusion Previewed by: Dr. Sebastian Monahan MD (Electronically Signed) Final Date: 04 March 2024 18:57
== END | disposition home or self-care (01) ==
LOC: RADECHMAIN 16:13
PROVIDERS: ATTEND Internal Medicine Hematology & Oncology
DX: Z01.818 Encounter for other preprocedural examination (principal)
CPT/HCPCS: 93306

== ENCOUNTER → 2024-03-11 | Outpatient (CLI) | payer BC ==
--- NOTE | 2024-03-13 17:02 | PE ---
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 Images are reviewed on the computer in the coronal, axial, and sagittal planes. Reconstructed rotating images are created on independent workstation and reviewed on the computer. A non-contrast CT is performed in conjunction with the PET scan. Glucose level 94 mg/dL CT DLP: 762 mGycm, Automated exposure control for dose reduction was used. COMPARISON: CT None, PET/CT None, MRI: None prior mammographic imaging. MRI 03/02/2024. FINDINGS: Mediastinal SUV mean is 2.4. Hepatic parenchyma SUV mean is 2.9. SKULL BASE AND NECK: No suspicious radiotracer activity. CHEST, MEDIASTINUM, AND HILAR REGION: * FDG avid right breast mass measuring 32 x 26 mm. Max SUV 23.2 * Right axilla FDG avid lymph nodes largest most avid accessory 4.7 with thickened cortex measuring up to 6 mm. ABDOMEN AND PELVIS: No suspicious radiotracer activity. MUSCULOSKELETAL STRUCTURES: No suspicious radiotracer activity. OTHER CT: Cholelithiasis. Fat-containing umbilical hernia. IMPRESSION: Right breast mass with multiple FDG avid right axillary lymph nodes compatible with metastatic diseas e. No other metastatic disease definitively visualized at this time.
== END | disposition home or self-care (01) ==
LOC: RADPETMAIN 13:18
PROVIDERS: ATTEND Internal Medicine Hematology & Oncology
DX: C50.211 Malignant neoplasm of upper-inner quadrant of right female breast (principal); N63.10 Unspecified lump in the right breast, unspecified quadrant
CPT/HCPCS: 78815; A9552

== ENCOUNTER 2024-03-20 19:16 | Emergency (ER) | payer BC ==
--- NOTE | 2024-03-20 19:54 | ED ---
Chest Pain HPI <Samuel Vasquez - Last Filed: 03/20/24 22:35> - General Source: patient, RN notes reviewed, old records reviewed Mode of arrival: ambulatory Limitations: no limitations - History of Present Illness MD Complaint: chest pain -: days(s) Onset: during rest Pain Location: substernal, right chest Pain Radiation: back Severity: severe Quality: tightness, aching Consistency: constant Improves With: nothing Worsens With: nothing Anginal Symptoms: diaphoresis Other Symptoms: cough Treatments Prior to Arrival: none <Dino Vasquez - Last Filed: 03/29/24 20:26> - General Chief Complaint: Chest Pain Stated Complaint: Chest Pain - Port Issues Time Seen by Provider: 03/20/24 19:47 - History of Present Illness Initial Comments: This patient is a 53-year-old female to ER for evaluation of multiple complaints weakness chest pain shortness of breath, no fever cough or congestion but complaining of weakness (Dino Vasquez) - Related Data Home Medications Medication Instructions Recorded Confirmed Multivitamins, Thera [Multivitamin 1 tab PO DAILY 09/05/19 02/24/24 (formulary)] Dextroamphetamine/Amphetamine 30 mg PO QAM 04/03/21 02/24/24 [Adderall Xr] Ibuprofen [Motrin] 800 mg PO Q8H PRN 04/03/21 02/24/24 Allergies Allergy/AdvReac Type Severity Reaction Status Date / Time No Known Allergies Allergy Verified 02/24/24 10:48 Review of Systems ROS Other: All systems not noted in ROS Statement are negative. <Samuel Vasquez - Last Filed: 03/20/24 22:35> ROS Other: All systems not noted in ROS Statement are negative. <Dino Vasquez - Last Filed: 03/29/24 20:26> ROS Statement: Those systems with pertinent positive or pertinent negative responses have been documented in the HPI. EKG Findings - EKG Comments: EKG Findings:: EKG is sinus 79 NV 150 QRS 90 QTc 384 - EKG Results: EKG: interpreted by ERMD <Dino Vasquez - Last Filed: 03/29/24 20:26> Past Medical History Past Medical History: Chest Pain / Angina, Osteoarthritis (OA) Additional Past Medical History / Comment(s): SQUAMOUS CELL SKIN CANCER, occ palpitations, History of Any Multi-Drug Resistant Organisms: None Reported Past Surgical History: Back Surgery, Tubal Ligation, Uterine Ablation Additional Past Surgical History / Comment(s): laminectomy, skin cancer removed from chest and leg, colonoscopy Past Anesthesia/Blood Transfusion Reactions: No Reported Reaction, Unable to Obtain Additional Past Anesthesia/Blood Transfusion Reaction / Comment(s): no family hx Past Psychological History: ADD/ADHD Smoking Status: Current every day smoker Past Alcohol Use History: Rare Past Drug Use History: None Reported - Past Family History Mother Family Medical History: Unable to Obtain <Dino Vasquez - Last Filed: 03/29/24 20:26> General Exam Limitations: no limitations General appearance: alert, in no apparent distress, anxious Head exam: Present: atraumatic, normocephalic, normal inspection Eye exam: Present: normal appearance, PERRL, EOMI. Absent: scleral icterus, conjunctival injection, periorbital swelling ENT exam: Present: normal exam, mucous membranes moist Neck exam: Present: normal inspection. Absent: tenderness, meningismus, lymphadenopathy Respiratory exam: Present: normal lung sounds bilaterally. Absent: respiratory distress, wheezes, rales, rhonchi, stridor Cardiovascular Exam: Present: normal rhythm, tachycardia, normal heart sounds. Absent: systolic murmur, diastolic murmur, rubs, gallop, clicks GI/Abdominal exam: Present: soft, normal bowel sounds. Absent: distended, tenderness, guarding, rebound, rigid Extremities exam: Present: normal inspection, full ROM, normal capillary refill. Absent: tenderness, pedal edema, joint swelling, calf tenderness Back exam: Present: normal inspection Neurological exam: Present: alert, oriented X3, CN II-XII intact Psychiatric exam: Present: normal affect, normal mood Skin exam: Present: warm, dry, intact, normal color. Absent: rash <Dino Vasquez - Last Filed: 03/29/24 20:26> Course <Dino Vasquez - Last Filed: 03/29/24 20:26> Vital Signs 03/20/24 03/20/24 03/20/24 19:40 20:42 22:46 Temperature 98.0 F 97.7 F Pulse Rate 103 H 81 68 Respiratory 20 18 18 Rate Blood Pressure 172/103 123/89 117/76 O2 Sat by Pulse 97 99 99 Oximetry - Reevaluation(s) Reevaluation #1: 03/20/24 19:53 Medical records reviewed (Dino Vasquez) Reevaluation #2: 03/20/24 19:53 Symptoms unchanged (Dino Vasquez) Reevaluation #5: Differential Chest Pain: Stable Angina, Unstable Angina, STEMI, NSTEMI Aortic Dissection, Pneumothorax, Musculoskeletal, Esophageal Spasm GERD, Cholecystitis, Pancreatitis, Zoster, this is not meant to be an all-inclusive list. (Dino Vasquez) Chest Pain MDM <Samuel Vasquez - Last Filed: 03/20/24 22:35> - MDM Was pt. sent in by a medical professional or institution (Dr. PA, SALES CONTRACTOR, urgent care, hospital, or fci...) When possible be specific @ -No Did you speak to anyone other than the patient for history (EMS, parent, family, police, friend...)? What history was obtained from this source @ -No Did you review nursing and triage notes (agree or disagree)? Why? @ -I reviewed and agree with nursing and triage notes Were old charts reviewed (outside hosp., previous admission, EMS record, old EKG, old radiological studies, urgent care reports/EKG's, fci records)? Report findings @ -No old charts were reviewed Differential Chest Pain: Stable Angina, Unstable Angina, STEMI, NSTEMI Aortic Dissection, Pneumothorax, Musculoskeletal, Esophageal Spasm GERD, Cholecystitis, Pancreatitis, Zoster, this is not meant to be an all-inclusive list. EKG interpreted by me (3pts min.). @ -As above X-rays interpreted by me (1pt min.). @Chest x-ray negative for acute cardiopulmonary findings CT interpreted by me (1pt min.). @ -Angiography of the chest is negative for pulmonary embolism, no acute findings. U/S interpreted by me (1pt. min.). @ -None done What testing was considered but not performed or refused? (CT, X-rays, U/S, labs)? Why? @ -None What meds were considered but not given or refused? Why? @ -None Did you discuss the management of the patient with other professionals (professionals i.e. , PA, SALES CONTRACTOR, lab, RT, psych nurse, social service director, transmission technician, teacher, ordnance officer, cyanide case hardener)? Give summary @ -No Was smoking cessation discussed for >3mins.? @ -No Was critical care preformed (if so, how long)? @ -No Were there social determinants of health that impacted care today? How? (Homelessness, low income, unemployed, alcoholism, drug addiction, transportation, low edu. Level, literacy, decrease access to med. care, halfway, rehab)? @ -No Was there de-escalation of care discussed even if they declined (Discuss DNR or withdrawal of care, Hospice)? DNR status @ -No What co-morbidities impacted this encounter? (DM, HTN, Smoking, COPD, CAD, Cancer, CVA, ARF, Chemo, Hep., AIDS, mental health diagnosis, sleep apnea, morbid obesity)? @ -None Was patient admitted / discharged? Hospital course, mention meds given and route, prescriptions, significant lab abnormalities, going to OR and other pertinent info. @Patient care was signed out at shift change awaiting CT angiography. This is reviewed, unremarkable. Patient reassured. She states that she prefers discharge with return parameters and outpatient follow-up. She will monitor symptoms. Pain is atypical. Undiagnosed new problem with uncertain prognosis? @ -No Drug Therapy requiring intensive monitoring for toxicity (Heparin, Nitro, Insulin, Cardizem)? @ -No Were any procedures done? @ -No Diagnosis/symptom? @ -chestPain after Mediport, breast cancer Acute, or Chronic, or Acute on Chronic? @ -acute Uncomplicated (without systemic symptoms) or Complicated (systemic symptoms)? @ -Default Side effects of treatment? @ -No Exacerbation, Progression, or Severe Exacerbation? @ -No Poses a threat to life or bodily function? How? (Chest pain, [place], [place], pneumonia, PE, COPD, DKA, ARF, appy, cholecystitis, CVA, Diverticulitis, Homicidal, Suicidal, threat to staff... and all critical care pts) @ -[low risk (Samuel Vasquez) Disposition Is patient prescribed a controlled substance at d/c from ED?: No Time of Disposition: 22:36 <Samuel Vasquez - Last Filed: 03/20/24 22:35> <Dino Vasquez - Last Filed: 03/29/24 20:26> Clinical Impression: Atypical chest pain Disposition: HOME SELF-CARE Condition: Good Instructions (If sedation given, give patient instructions): Chest Pain (ED) Referrals: Trey Jeffers MD [Primary Care Provider] - 1-2 days
[2024-03-20] MEDS: SODIUM CHLORIDE 0.9% 1,000 ML IV STA (20:39)
[2024-03-20] MEDS: HYDROmorphone 0.5 MG/0.5 ML SYRINGE IVP STA (20:40)
[2024-03-20 20:43] VITALS: RESP 18
[2024-03-20 21:01] LABS: Basophils # (A) 0.1 k/uL (0-0.2); Basophils % (A) 1 %; Eosinophils # (A) 0.1 k/uL (0-0.7); Eosinophils % (A) 2 %; HCT 47.6 % (34.0-46.0); Lymphocytes # (A) 1.9 k/uL (1.0-4.8); Lymphocytes % (A) 27 %; MCH 28.2 pg (25.0-35.0); MCHC 31.4 g/dL (31.0-37.0); MCV 89.9 fL (80.0-100.0); Mean Platelet Volume 8.1; Monocytes # (A) 0.5 k/uL (0-1.0); Monocytes % (A) 7 %; Neutrophils # (A) 4.4 k/uL (1.3-7.7); Neutrophils % (A) 62 %; Platelet Count 288 k/uL (150-450); WBC 7.2 k/uL (3.8-10.6)
[2024-03-20 21:15] LABS: INR 0.8 (<1.2); Prothrombin Time 9.6 sec (10.0-12.5)
[2024-03-20 21:17] LABS: ALT 21 U/L (4-34); AST 31 U/L (14-36); African American GFR (CKD) >90 (>60 ml/min/1.73 sqM); Alkaline Phosphatase 103 U/L (38-126); Anion Gap 9 mmol/L; Blood Urea Nitrogen 18 mg/dL (7-17); Calcium 10.9 mg/dL (8.4-10.2); Carbon Dioxide 30 mmol/L (22-30); Chloride 102 mmol/L (98-107); Glucose 75 mg/dL (74-99); Lipase 55 U/L (23-300); Non-African American GFR(CKD) 81 (>60 ml/min/1.73 sqM); Potassium 3.6 mmol/L (3.5-5.1); Sodium 141 mmol/L (137-145); Total Bilirubin 0.7 mg/dL (0.2-1.3); Total Protein 8.1 g/dL (6.3-8.2)
[2024-03-20 21:23] LABS: NT-Pro-B-Type Natriuretic Pept 58 pg/mL
--- NOTE | 2024-03-20 21:24 | XR ---
EXAMINATION TYPE: XR chest 1V portable DATE OF EXAM: 03/20/2024 8:41 PM CLINICAL INDICATION:Female, 53 years old with history of chest pain; COMPARISON: PET/CT 03/11/2024. TECHNIQUE: XR chest 1V portable Frontal view of the chest. FINDINGS: Lungs/Pleura: There is no evidence of pleural effusion, focal consolidation, or pneumothorax. Pulmonary vascularity: Unremarkable. Heart/mediastinum: Cardiomediastinal silhouette is unremarkable. Musculoskeletal: No acute osseous pathology. Chest wall [id number] tip at superior vena cava. . IMPRESSION: No acute cardiopulmonary disease/process.
--- NOTE | 2024-03-20 22:10 | CT ---
EXAMINATION TYPE: CT angio chest CT DLP: 400.7 mGycm, Automated exposure control for dose reduction was used. DATE OF EXAM: 03/20/2024 9:48 PM COMPARISON: Pet/CT 03/03/2024 CLINICAL INDICATION:Female, 53 years old with history of PE; R/O PE. TECHNIQUE/CONTRAST: CTA scan of the thorax is performed with IV Contrast, patient injected with 100 ml mL of Isovue 370, MIP images are created and reviewed these are created on a separate workstation.. FINDINGS: Pulmonary Artery: There is no evidence for a filling defect within the pulmonary vasculature to sugge st acute pulmonary embolism. The pulmonary artery is of normal size. Lungs/Pleura: No evidence of focal consolidation, pleural effusion or pneumothorax. Airway: Large airways are patent. Heart: Heart is within normal limits for size. Vasculature: No evidence of aortic aneurysm. Left chest wall [id number] with tip terminating in th e superior vena cava. Mediastinum: No gross evidence of adenopathy. Musculoskeletal: No acute osseous abnormalities Soft Tissues/lymph nodes: Right breast mass measuring 34 x 20 mm no lymphadenopathy at this time. Lower neck: No significant findings. Upper Abdomen: No significant findings. IMPRESSION: 1. No evidence of pulmonary embolism. 2. Right breast mass with known FDG avid right axillary lymph nodes. No greater than 1.0 cm short ax is lymph node identified.
[2024-03-20 22:49] VITALS: BP 117/76; PULSE 68; TEMP 97.7
== END 2024-03-20 22:53 | disposition home or self-care (01) ==
LOC: EC 19:16
DX: R07.89 Other chest pain (principal); F17.200 Nicotine dependence, unspecified, uncomplicated
CPT/HCPCS: 36415; 93005; 83880; 80053; 83690; 83735; 84484; 85025; 85610; 85730; 71045; 71275; 99285; 96374; 96361 ×2; J1170; Q9967

== ENCOUNTER 2024-05-07 14:07 | Inpatient (IN) | payer BC ==
[2024-05-07] MEDS ORDERED: ACETAMINOPHEN TAB 325 MG TAB ONE (15:36)
[2024-05-07] MEDS ORDERED: VANCOMYCIN 1,000 MG VIAL ONE (16:30)
[2024-05-07] MEDS ORDERED: SODIUM CHLORIDE 0.9% 250 ML BAG ONE (16:30)
[2024-05-07] MEDS ORDERED: SODIUM CHLORIDE 0.9% 1,000 ML BAG ONE (16:30)
[2024-05-07] MEDS ORDERED: VANCOMYCIN IV PER PHARMACY 1 EACH MISC MISCELLANE PRN (21:10)
[2024-05-08] MEDS ORDERED: SODIUM CHLORIDE 0.9% 250 ML BAG ONE
[2024-05-08] MEDS ORDERED: SODIUM CHLORIDE 0.9% 100 ML BAG ONE
[2024-05-08] MEDS ORDERED: SODIUM CHLORIDE 0.9% 1,000 ML BAG ONE
[2024-05-08] MEDS: VANCOMYCIN 1,750 MG in SODIUM CHLORIDE 0.9% 500 ML 500 ML IVPB SCH (05:35)
[2024-05-08] MEDS: SODIUM CHLORIDE 0.9% 1,000 ML IV SCH (05:35)
[2024-05-08] MEDS: CEFEPIME 2 GM in SODIUM CHLORIDE 0.9% 100 ML IVPB SCH (05:35)
[2024-05-08 05:44] LABS: Basophils % (A) 1 %; Eosinophils # (A) 0.1 k/uL (0-0.7); Eosinophils % (A) 5 %; HCT 30.8 % (34.0-46.0); Lymphocytes # (A) 0.6 k/uL (1.0-4.8); Lymphocytes % (A) 41 %; MCH 29.4 pg (25.0-35.0); MCHC 34.2 g/dL (31.0-37.0); Mean Platelet Volume 7.9; Monocytes % (A) 1 %; Neutrophils # (A) 0.8 k/uL (1.3-7.7); Neutrophils % (A) 50 %; Platelet Count 166 k/uL (150-450); RBC 3.58 m/uL (3.80-5.40); RDW 15.5 % (11.5-15.5); WBC 1.5 k/uL (3.8-10.6)
[2024-05-08 05:48] LABS: HGB 10.5 gm/dL (11.4-16.0)
[2024-05-08 06:26] LABS: African American GFR (CKD) >90 (>60 ml/min/1.73 sqM); Anion Gap 6 mmol/L; Blood Urea Nitrogen 10 mg/dL (7-17); Calcium 8.5 mg/dL (8.4-10.2); Carbon Dioxide 22 mmol/L (22-30); Chloride 107 mmol/L (98-107); Glucose 104 mg/dL (74-99); Non-African American GFR(CKD) >90 (>60 ml/min/1.73 sqM); Potassium 3.7 mmol/L (3.5-5.1); Sodium 135 mmol/L (137-145)
--- NOTE | 2024-05-08 08:13 | US ---
EXAMINATION TYPE: US abdomen limited DATE OF EXAM: 05/08/2024 COMPARISON: NONE CLINICAL INDICATION: Female, 53 years old with history of RUQ for transaminitis; Elevated LFT's, H/O breast CA TECHNIQUE: Multiple sonographic images of the right upper quadrant are obtained. FINDINGS: EXAM MEASUREMENTS: Liver Length: 19.1 cm Gallbladder Wall: 0.2 cm CBD: 0.6 cm Right Kidney: 11.9 x 4.5 x 4.5 cm Pancreas: wnl, tail obscured by overlying bowel gas Liver: Enlarged, heterogeneous Gallbladder: 2 mobile sludge balls vs. gallstones, wall not thickened Evidence for sonographic Sánchez's sign: No CBD: wnl Right Kidney: wnl IMPRESSION: 1. Hepatomegaly with heterogenous echotexture correlate with serum markers. 2. Biliary sludge/gallstones.
[2024-05-08] MEDS: ONDANSETRON 4 MG/2 ML VIAL IVP PRN (09:49)
[2024-05-08] MEDS: ACETAMINOPHEN TAB 325 MG TAB PO PRN (09:49)
[2024-05-08] MEDS: ENOXAPARIN 40 MG/0.4 ML SYRINGE SQ SCH (09:50)
[2024-05-08] MEDS: AMPHETAMINE PO SCH (10:56)
[2024-05-08] MEDS: DEXTROAMPHETAMINE PO SCH (10:56)
--- NOTE | 2024-05-08 14:16 | P.PN ---
Subjective Progress Note Date: 05/08/24 Hospital Course: 53-year-old female with triple negative breast cancer on chemotherapy presenting with neutropenic sepsis. Currently on broad-spectrum antibiotics. ID consulted. Oncology consulted. Subjective: Patient seen and examined at bedside. No acute events overnight. Remains afeb rile. Pertinent positives and negatives as discussed above, a complete review of systems was performed and all other systems are negative. Vitals Signs Reviewed. General: Nontoxic, no distress, appears at stated age Derm: Warm, dry Head: Atraumatic, normocephalic, symmetric Eyes: EOMI, no lid lag, anicteric sclera Mouth: No lip lesion, mucus membranes moist Cardiovascular: S1S2 reg, no murmur Lungs: CTA bilateral, no rhonchi, no rales, no accessory muscle use Abdominal: Soft, nontender to palpation, no guarding, no appreciable organomegaly Ext: No gross muscle atrophy, no edema, no contractures Neuro: CN II-XI grossly intact, no focal neuro deficits Psych: Alert, oriented, appropriate affect Data Reviewed Today: Pertinent Labs: WBC 1.5, hemoglobin 10.5, platelet 166, sodium 135, creatinine 0.62 Imaging: Right upper quadrant ultrasound shows hepatomegaly, biliary sludge and gallstones, CBD within normal limits, gallbladder wall not thickened Assessment and Plan: Active: Neutropenic sepsis, likely upper respiratory infection Triple negative breast cancer on active chemotherapy -Continued on IV cefepime 2 g every 8 hours -On IV vancomycin, monitor renal toxicity -ID following, consider discontinuing IV vancomycin -Cultures pending -Oncology consulted -Continue normal saline at 70 cc an hour Transaminitis -Right upper quadrant ultrasound shows gallstones but normal-appearing gallbladder, CBD within normal limits Chronic: ADHD DVT ppx: Lovenox Code status: Full code Anticipated discharge place: Pending clinical course Anticipated discharge time: Pending clinical course Objective - Vital Signs Vital signs: Vital Signs Temp 98.3 F 05/08/24 13:18 Pulse 78 05/08/24 13:18 Resp 16 05/08/24 13:18 BP 106/65 05/08/24 13:18 Pulse Ox 95 05/08/24 13:18 FiO2 Intake & Output 05/07/24 05/08/24 05/08/24 18:59 06:59 18:59 Weight 100.244 kg Other: Voiding Method Toilet # Voids 1 - Labs CBC & Chem 7: 05/08/24 04:20 05/08/24 04:06 Labs: Abnormal Lab Results - Last 24 Hours (Table) 05/08/24 05/08/24 Range/Units 04:06 04:20 WBC 1.5 L (3.8-10.6) k/uL RBC 3.58 L (3.80-5.40) m/uL Hgb 10.5 L D (11.4-16.0) gm/dL Hct 30.8 L (34.0-46.0) % Neutrophils # 0.8 L (1.3-7.7) k/uL Lymphocytes # 0.6 L (1.0-4.8) k/uL Sodium 135 L (137-145) mmol/L Glucose 104 H (74-99) mg/dL
--- NOTE | 2024-05-08 20:09 | P.CONS ---
History of Present Illness - Reason for Consult Consult date: 05/08/24 SIRS, Chemo, Neutropenia - History of Present Illness The patient is a 53-year-old white female well-known to our service. She had presented with a palpable right breast mass in 01/05. She was found to have a 3 x 1.7 cm mass in the upper inner quadrant with ultrasound-guided core biopsy on 02/04/2024 revealing grade 3 invasive ductal carcinoma, triple negative. The patient was started on carboplatin/Taxol/Keytruda neoadjuvant, and is status post 3 cycles, completing cycle #3 on 05/05/2024. The patient's had contacted the admitting service, stating that the patient had had fever the day before, and then the day after her last chemo. Temperature at home was up to 102. She was advised to go to the emergency room. Her case was discussed with the ER physician at [place], [place]. The patient was actually not neutropenic in the ER, and was not febrile there, but did have an elevated heart rate and according to the ER physician "did not feel well". Liver enzymes are mildly elevated. She it was therefore advised that the patient be transferred to this hospital for admission. The patient's WBC has actually dropped, compared to her levels in [place], into the 1000 range. She has mild neutropenia at 800. However she has not been febrile here. Ultrasound of the abdomen noted hepatomegaly with heterogenous echotexture, and at least 2 mobile sludge balls versus gallstones. However there was no evidence of active cholecystitis. The patient reports sinus congestion, as well as swelling and irritation of the eyes. She denies any other localizing symptoms. Review of Systems Constitutional: Reports fatigue, Reports fever, Reports malaise Eyes: bilateral as per HPI Ears: deny: decreased hearing, ear discharge, earache, tinnitus Ears, nose, mouth and throat: Reports as per HPI, Reports nasal congestion, Reports sinus pressure Breasts: right: as per HPI Cardiovascular: Denies chest pain, Denies shortness of breath Respiratory: Denies cough Gastrointestinal: Denies abdominal pain, Denies diarrhea, Denies nausea, Denies vomiting Genitourinary: Denies dysuria, Denies hematuria Menstruation: Reports postmenopausal Musculoskeletal: Denies myalgias Integumentary: Denies pruritus, Denies rash Neurological: Reports weakness Psychiatric: Denies anxiety, Denies depression Endocrine: Reports fatigue Hematologic/Lymphatic: Reports as per HPI Past Medical History Past Medical History: Chest Pain / Angina, Osteoarthritis (OA) Additional Past Medical History / Comment(s): SQUAMOUS CELL SKIN CANCER, occ palpitations, History of Any Multi-Drug Resistant Organisms: None Reported Past Surgical History: Back Surgery, Tubal Ligation, Uterine Ablation Additional Past Surgical History / Comment(s): laminectomy, skin cancer removed from chest and leg, colonoscopy Past Anesthesia/Blood Transfusion Reactions: No Reported Reaction, Unable to Obtain Additional Past Anesthesia/Blood Transfusion Reaction / Comm: no family hx Past Psychological History: ADD/ADHD Smoking Status: Current every day smoker Past Alcohol Use History: Rare Past Drug Use History: None Reported - Past Family History Mother Family Medical History: Unable to Obtain Medications and Allergies Home Medications Medication Instructions Recorded Confirmed Type Multivitamins, Thera [Multivitamin 1 tab PO DAILY 09/05/19 02/24/24 History (formulary)] Dextroamphetamine/Amphetamine 30 mg PO QAM 04/03/21 02/24/24 History [Adderall Xr] Ibuprofen [Motrin] 800 mg PO Q8H PRN 04/03/21 02/24/24 History Allergies Allergy/AdvReac Type Severity Reaction Status Date / Time No Known Allergies Allergy Verified 02/24/24 10:48 Physical Exam Vitals: Vital Signs Temp Pulse Resp BP BP Pulse Ox 05/08/24 19:23 99 F 84 16 106/65 94 L 05/08/24 13:18 98.3 F 78 16 106/65 95 05/08/24 07:41 98.3 F 81 16 105/63 93 L 05/08/24 00:50 98.6 F 83 18 111/72 94 L Intake and Output 05/08/24 05/08/24 05/08/24 06:59 14:59 22:59 Intake Total 1620 Balance 1620 Intake: Oral 1620 Other: Voiding Method Toilet # Voids 1 - Constitutional General appearance: no acute distress - EENT Eyes: EOMI, PERRLA ENT: hearing grossly normal, normal oropharynx - Neck Neck: no lymphadenopathy Carotids: bilateral: upstroke normal Thyroid: bilateral: normal size - Respiratory Respiratory: bilateral: CTA - Cardiovascular Rhythm: regular Heart sounds: normal: S1, S2 - Gastrointestinal General gastrointestinal: normal bowel sounds, soft - Integumentary Integumentary: normal - Neurologic Neurologic: CNII-XII intact - Musculoskeletal Musculoskeletal: strength equal bilaterally - Psychiatric Psychiatric: A&O x's 3, appropriate affect Results CBC & Chem 7: 05/08/24 04:20 05/08/24 04:06 Labs: Abnormal Lab Results - Last 24 Hours (Table) 05/08/24 05/08/24 Range/Units 04:06 04:20 WBC 1.5 L (3.8-10.6) k/uL RBC 3.58 L (3.80-5.40) m/uL Hgb 10.5 L D (11.4-16.0) gm/dL Hct 30.8 L (34.0-46.0) % Neutrophils # 0.8 L (1.3-7.7) k/uL Lymphocytes # 0.6 L (1.0-4.8) k/uL Sodium 135 L (137-145) mmol/L Glucose 104 H (74-99) mg/dL US - abdomen: report reviewed Assessment and Plan (1) SIRS (systemic inflammatory response syndrome) Narrative/Plan: The patient had presented with fever at home, up to 102, and was noted to have elevated heart rate when seen in her local ER. At that time she was actually not neutropenic. Postadmission here her WBC has declined, but the patient has not had any fevers since being started on IV antibiotic. -The patient does not have definite localizing signs, other than some upper respiratory tract symptoms. She was found to have some liver enzyme elevation, and ultrasound report is as described. However there does not appear to be evidence of inflammation of the gallbladder by physical exam or ultrasound. -Continue IV antibiotics. Await cultures. Current Visit: Yes Status: Acute Code(s): R65.10 - SIRS OF NON-INFECTIOUS ORIGIN W/O ACUTE ORGAN DYSFUNCTION SNOMED Code(s): 733036460 (2) Chemotherapy induced neutropenia Narrative/Plan: Interestingly patient did not have neutropenia, when she was having fever. Since admission here, her WBC has declined, but she has become afebrile. Degree of neutropenia is mild, with neutrophil count in the 7-800 range. In most cases ANC greater than 500 is safe. Therefore since the patient is not febrile at this time, and vitals are fairly normal, we will hold off on starting G-CSF and continue to monitor closely. She is continuing antibiotic. Current Visit: Yes Status: Acute Code(s): D70.1 - AGRANULOCYTOSIS SECONDARY TO CANCER CHEMOTHERAPY; T45.1X5A - ADVERSE EFFECT OF ANTINEOPLASTIC AND IMMUNOSUP DRUGS, INIT SNOMED Code(s): 204675562 Plan: Assuming acute situation to be resolved satisfactorily, the patient will continue her treatment for her breast cancer as an outpatient, as scheduled.
--- NOTE | 2024-05-08 21:50 | P.CONS ---
History of Present Illness - Reason for Consult Consult date: 05/08/24 Febrile neutropenia Requesting physician: Santos Zamora - Chief Complaint Fever x 1 day - History of Present Illness Patient is a 53-year-old female with a past medical history significant for right-sided breast cancer for the patient has been on chemotherapy to the left chest wall Mediport since January 2024 with the last chemotherapy was on , 05/05/2024, patient presenting to the hospital yesterday for evaluation of fever chills and bodyaches apparently the patient symptoms has been going on for the last day or 2 before presentation to the hospital. Denies significant headache or photophobia she did have some nasal congestion and apparently some purulent nasal secretion but denies any significant postnasal drip or difficulty swallowing no chest pain no shortness with occasional cough no sputum production some nausea but no vomiting no abdomi nal pain or any diarrhea with the same with the patient was evaluated on presentation to the hospital the patient did have a temperature of 102.3 F patient noted to have a low white count of 1.7 patient did have a negative COVID-19 influenza and RSV PCR chest x-ray was reported negative for acute i nfiltrate patient initially started on vancomycin and Zosyn Zosyn was subsequently switched over to cefepime infectious disease was consulted for further management of antibiotic therapy as of this morning the patient did have overall improvement in her fever pattern and denies having any worsening symptoms Review of Systems Positive point and negatives has been mentioned in the HPI, complete review of systems was performed and all other systems are negative Past Medical History Past Medical History: Chest Pain / Angina, Osteoarthritis (OA) Additional Past Medical History / Comment(s): SQUAMOUS CELL SKIN CANCER, occ palpitations, History of Any Multi-Drug Resistant Organisms: None Reported Past Surgical History: Back Surgery, Tubal Ligation, Uterine Ablation Additional Past Surgical History / Comment(s): laminectomy, skin cancer removed from chest and leg, colonoscopy Past Anesthesia/Blood Transfusion Reactions: No Reported Reaction, Unable to Obtain Additional Past Anesthesia/Blood Transfusion Reaction / Comm: no family hx Past Psychological History: ADD/ADHD Smoking Status: Current every day smoker Past Alcohol Use History: Rare Past Drug Use History: None Reported - Past Family History Mother Family Medical History: Unable to Obtain Medications and Allergies Home Medications Medication Instructions Recorded Confirmed Type Multivitamins, Thera [Multivitamin 1 tab PO DAILY 09/05/19 02/24/24 History (formulary)] Dextroamphetamine/Amphetamine 30 mg PO QAM 04/03/21 02/24/24 History [Adderall Xr] Ibuprofen [Motrin] 800 mg PO Q8H PRN 04/03/21 02/24/24 History Allergies Allergy/AdvReac Type Severity Reaction Status Date / Time No Known Allergies Allergy Verified 02/24/24 10:48 Physical Exam Vitals: Vital Signs Temp Pulse Resp BP BP Pulse Ox 05/08/24 07:41 98.3 F 81 16 105/63 93 L 05/08/24 00:50 98.6 F 83 18 111/72 94 L Intake and Output 05/07/24 05/08/24 05/08/24 22:59 06:59 14:59 Other: Voiding Method Toilet # Voids 1 Weight 100.244 kg GENERAL DESCRIPTION: Middle-aged female lying in bed, no distress. No tachypnea or accessory muscle of respiration use. HEENT: Shows Pallor , no scleral icterus. Oral mucous membrane is dry. No pharyngeal erythema or thrush NECK: Trachea central, no thyromegaly. LUNGS: Unlabored breathing. Clear to auscultation anteriorly. No wheeze or crackle. HEART: S1, S2, regular rate and rhythm. No loud murmur ABDOMEN: Soft, no tenderness , guarding or rigidity, no organomegaly EXTREMITIES: No edema of feet. SKIN: No rash, no masses palpable. NEUROLOGICAL: The patient is awake, alert, oriented x3, mood and affect normal. Results CBC & Chem 7: 05/08/24 04:20 05/08/24 04:06 Labs: Abnormal Lab Results - Last 24 Hours (Table) 05/08/24 05/08/24 Range/Units 04:06 04:20 WBC 1.5 L (3.8-10.6) k/uL RBC 3.58 L (3.80-5.40) m/uL Hgb 10.5 L D (11.4-16.0) gm/dL Hct 30.8 L (34.0-46.0) % Neutrophils # 0.8 L (1.3-7.7) k/uL Lymphocytes # 0.6 L (1.0-4.8) k/uL Sodium 135 L (137-145) mmol/L Glucose 104 H (74-99) mg/dL Assessment and Plan (1) Febrile neutropenia Current Visit: Yes Status: Acute Code(s): D70.9 - NEUTROPENIA, UNSPECIFIED; R50.81 - FEVER PRESENTING WITH CONDITIONS CLASSIFIED ELSEWHERE SNOMED Code(s): 811555611 (2) SIRS (systemic inflammatory response syndrome) Current Visit: Yes Status: Acute Code(s): R65.10 - SIRS OF NON-INFECTIOUS ORIGIN W/O ACUTE ORGAN DYSFUNCTION SNOMED Code(s): 414039467 Plan: 1patient presented to hospital with fever generalized bodyaches in this patient who did have a history of breast cancer on chemotherapy last chemo was on 05/05/2024 did have initial workup negative. 2we are currently waiting for the final report on the abdominal ultrasound. 3we will continue patient on vancomycin and cefepime while waiting for the culture to finalize we will follow on clinical condition and cultures to further adjust medication if needed Thank you for this consultation we will follow the patient along with you Dictation was produced using [employer] dictation software. please excuse any grammatical, word or spelling errors. Time with Patient: Greater than 30
[2024-05-09 06:55] LABS: African American GFR (CKD) >90 (>60 ml/min/1.73 sqM); Anion Gap 4 mmol/L; Blood Urea Nitrogen 7 mg/dL (7-17); Calcium 8.9 mg/dL (8.4-10.2); Carbon Dioxide 24 mmol/L (22-30); Chloride 109 mmol/L (98-107); Glucose 100 mg/dL (74-99); Non-African American GFR(CKD) >90 (>60 ml/min/1.73 sqM); Sodium 137 mmol/L (137-145)
[2024-05-09] MEDS: VANCOMYCIN TROUGH DUE 1 EACH MISC MISCELLANE ONE (09:04)
[2024-05-09 09:07] LABS: HCT 29.8 % (37.2-46.3); HGB 10.3 g/dL (12.0-15.0); MCH 29.3 pg (27.0-32.0); MCHC 34.6 g/dL (32.0-37.0); MCV 84.9 FL (80.0-97.0); Mean Platelet Volume 10.5 FL (9.5-12.2); NRBC Per 100 WBC 0 X 10*3/uL (0.00-0.01); Platelet Count 167 X 10*3/uL (140-440); RBC 3.51 X 10*6/uL (4.10-5.20); RDW 15.8 % (11.5-14.5); WBC 2.03 X 10*3/uL (4.50-10.00)
[2024-05-09 09:24] LABS: ALT 184 U/L (8-44); AST 114 U/L (13-35); Albumin 3.6 g/dL (3.8-4.9); Alkaline Phosphatase 209 U/L (41-126); BUN/Creat Ratio 11.43 Ratio (12.00-20.00); Calcium 8.6 mg/dL (8.7-10.3); Carbon Dioxide 21.5 mmol/L (21.6-31.8); Chloride 106 mmol/L (96-109); Glucose 111 mg/dL (70-110); Potassium 3.9 mmol/L (3.5-5.5); Sodium 139 mmol/L (135-145); Total Bilirubin 0.8 mg/dL (0.3-1.2); Total Protein 5.6 g/dL (6.2-8.2)
[2024-05-09] MEDS ORDERED: SALINE NASAL GEL 14.1 GM TUBE NASAL PRN (09:41)
[2024-05-09] MEDS: LORATADINE 10 MG TAB PO SCH (09:55)
--- NOTE | 2024-05-09 10:27 | P.PN ---
Subjective Progress Note Date: 05/09/24 Principal diagnosis: Fever, triple neg breast cancer In f/u today is still not feeling well but no fevers, N,V, abd pain, dysuria, she did finally have a BM yesterday after several days, she is tolerating oral intake, ambulating in room. She has frontal sinus pain, bridge of nose hurt when she wears glasses, her eyes feel swollen. Objective - Vital Signs Vital signs: Vital Signs Temp 98.7 F 05/09/24 07:21 Pulse 75 05/09/24 07:21 Resp 17 05/09/24 07:21 BP 115/77 05/09/24 07:21 Pulse Ox 94 L 05/09/24 07:21 FiO2 Intake & Output 05/08/24 05/09/24 05/09/24 18:59 06:59 18:59 Intake Total 1620 830 Balance 1620 830 Intake: Oral 1620 830 Other: Voiding Method Toilet Toilet # Voids 3 - Constitutional General appearance: Present: average body habitus, cooperative, no acute distress - EENT EENT Comment(s): thick, clear mucus in the back of throat Eyes: Present: anicteric sclerae, EOMI ENT: Present: hearing grossly normal, normal oropharynx - Respiratory Respiratory: bilateral: CTA - Cardiovascular Rhythm: regular Heart sounds: normal: S1, S2 Abnormal Heart Sounds: Absent: systolic murmur, diastolic murmur, rub, S3 Gallop, S4 Gallop, click, other - Peripheral edema leg Peripheral Edema: bilateral: None - Gastrointestinal General gastrointestinal: Present: normal bowel sounds, soft - Integumentary Integumentary: Present: normal - Neurologic Neurologic: Present: CNII-XII intact - Musculoskeletal Musculoskeletal: Present: strength equal bilaterally - Psychiatric Psychiatric: Present: A&O x's 3, appropriate affect, intact judgment & insight - Labs CBC & Chem 7: 05/09/24 02:33 05/09/24 06:14 Labs: Abnormal Lab Results - Last 24 Hours (Table) 05/09/24 05/09/24 05/09/24 Range/Units 02:33 02:33 06:14 WBC 2.03 L (4.50-10.00) X 10*3/uL RBC 3.51 L (4.10-5.20) X 10*6/uL Hgb 10.3 L (12.0-15.0) g/dL Hct 29.8 L (37.2-46.3) % RDW 15.8 H (11.5-14.5) % Chloride 109 H (98-107) mmol/L Carbon Dioxide 21.5 L (21.6-31.8) mmol/L BUN 8.0 L (9.0-27.0) mg/dL BUN/Creatinine Ratio 11.43 L (12.00-20.00) Ratio Glucose 111 H 100 H (70-110) mg/dL Calcium 8.6 L (8.7-10.3) mg/dL AST 114 H (13-35) U/L ALT 184 H (8-44) U/L Alkaline Phosphatase 209 H (41-126) U/L Total Protein 5.6 L (6.2-8.2) g/dL Albumin 3.6 L (3.8-4.9) g/dL - Imaging and Cardiology US - abdomen: report reviewed Assessment and Plan (1) SIRS (systemic inflammatory response syndrome) Current Visit: Yes Status: Acute Priority: High Code(s): R65.10 - SIRS OF NON-INFECTIOUS ORIGIN W/O ACUTE ORGAN DYSFUNCTION SNOMED Code(s): 763198052 (2) Febrile neutropenia Current Visit: Yes Status: Acute Priority: High Code(s): D70.9 - NEUTROPENIA, UNSPECIFIED; R50.81 - FEVER PRESENTING WITH CONDITIONS CLASSIFIED ELSEWHERE SNOMED Code(s): 277310249 (3) Triple negative breast cancer Current Visit: Yes Status: Acute Priority: Medium Code(s): C50.919 - MALIGNANT NEOPLASM OF UNSP SITE OF UNSPECIFIED FEMALE BREAST SNOMED Code(s): 077082355 Plan: SIRS, febrile neutropenia -No fevers overnight -Pancultures so far negative -Pt on abx, ID following -WBC improved today to 2.03 -LFTs cont to be elevated. US abd biliary sludge, gall stones. Cont to monitor. If no improvements, possible Surgical consult Triple neg breast cancer -On treatment -Treatment due this week, will be delayed until she has completed course of abx and her current acute condition is adequately treated/resolved Ordered claritin and saline nasal spray for sinus c/o.
[2024-05-09 10:33] LABS: Basophils # (A) 0.02 X 10*3/uL (0.00-0.10); Eosinophils # (A) 0.07 X 10*3/uL (0.04-0.35); Eosinophils % (A) 3.4 %; Lymphocytes # (A) 0.76 X 10*3/uL (0.90-5.00); Lymphocytes % (A) 37.4 %; Monocytes # (A) 0.08 X 10*3/uL (0.20-1.00); Monocytes % (A) 3.9 %; Neutrophils # (A) 1.09 X 10*3/uL (1.80-7.70); Neutrophils % (A) 53.8 %
[2024-05-09] MEDS: ACETAMINOPHEN TAB 325 MG TAB ONE ×6 (12:23→12:29)
[2024-05-09] MEDS: ONDANSETRON 4 MG/2 ML VIAL ONE (12:23)
--- NOTE | 2024-05-09 14:16 | P.PN ---
Subjective Progress Note Date: 05/09/24 Hospital Course: 53-year-old female with triple negative breast cancer on chemotherapy presenting with febrile neutropenia. Currently on broad-spectrum antibiotics. ID consulted. Oncology consulted. Subjective: Patient seen and examined at bedside. No acute events overnight. Remains afe brile. Still complaining of sinus congestion. Pertinent positives and negatives as discussed above, a complete review of systems was performed and all other systems are negative. Vitals Signs Reviewed. General: Nontoxic, no distress, appears at stated age Derm: Warm, dry Head: Atraumatic, normocephalic, symmetric Nose: No purulent drainage noted, maxillary sinus slightly tender to palpation Eyes: EOMI, no lid lag, anicteric sclera Mouth: No lip lesion, mucus membranes moist Cardiovascular: S1S2 reg, no murmur Lungs: CTA bilateral, no rhonchi, no rales, no accessory muscle use Abdominal: Soft, nontender to palpation, no guarding, no appreciable organomegaly Ext: No gross muscle atrophy, no edema, no contractures Neuro: CN II-XI grossly intact, no focal neuro deficits Psych: Alert, oriented, appropriate affect Data Reviewed Today: Pertinent Labs: WBC 2.03, hemoglobin 10.3, potassium 3.9, creatinine 0.7, AST 114, ALT 184, ALP 209 Imaging: No new imaging Assessment and Plan: Active: Febrile neutropenia, likely viral upper respiratory infection SIRS Triple negative breast cancer on active chemotherapy -Continued on IV cefepime 2 g every 8 hours -On IV vancomycin, monitor renal toxicity -ID following, consider discontinuing IV vancomycin -Cultures pending -Oncology note reviewed, likely delay in neck session of chemotherapy Transaminitis -Right upper quadrant ultrasound shows gallstones but normal-appearing gallbladder, CBD within normal limits -Stable, continue to monitor Chronic: ADHD DVT ppx: Lovenox Code status: Full code Anticipated discharge place: Pending clinical course Anticipated discharge time: Pending clinical course Objective - Vital Signs Vital signs: Vital Signs Temp 98.5 F 05/09/24 13:16 Pulse 82 05/09/24 13:16 Resp 16 05/09/24 13:16 BP 120/76 05/09/24 13:16 Pulse Ox 95 05/09/24 13:16 FiO2 Intake & Output 05/08/24 05/09/24 05/09/24 18:59 06:59 18:59 Intake Total 1620 830 Balance 1620 830 Intake: Oral 1620 830 Other: Voiding Method Toilet Toilet # Voids 3 - Labs CBC & Chem 7: 05/09/24 02:33 05/09/24 06:14 Labs: Abnormal Lab Results - Last 24 Hours (Table) 05/09/24 05/09/24 05/09/24 Range/Units 02:33 02:33 06:14 WBC 2.03 L (4.50-10.00) X 10*3/uL RBC 3.51 L (4.10-5.20) X 10*6/uL Hgb 10.3 L (12.0-15.0) g/dL Hct 29.8 L (37.2-46.3) % RDW 15.8 H (11.5-14.5) % Neutrophils # 1.09 L (1.80-7.70) X 10*3/uL Lymphocytes # 0.76 L (0.90-5.00) X 10*3/uL Monocytes # 0.08 L (0.20-1.00) X 10*3/uL Chloride 109 H (98-107) mmol/L Carbon Dioxide 21.5 L (21.6-31.8) mmol/L BUN 8.0 L (9.0-27.0) mg/dL BUN/Creatinine Ratio 11.43 L (12.00-20.00) Ratio Glucose 111 H 100 H (70-110) mg/dL Calcium 8.6 L (8.7-10.3) mg/dL AST 114 H (13-35) U/L ALT 184 H (8-44) U/L Alkaline Phosphatase 209 H (41-126) U/L Total Protein 5.6 L (6.2-8.2) g/dL Albumin 3.6 L (3.8-4.9) g/dL
[2024-05-09] MEDS: VANCOMYCIN 1,500 MG in SODIUM CHLORIDE 0.9% 500 ML 500 ML IVPB SCH (16:02)
[2024-05-10 03:52] LABS: ALT 178 U/L (4-34); AST 121 U/L (14-36); African American GFR (CKD) >90 (>60 ml/min/1.73 sqM); Albumin 3.1 g/dL (3.5-5.0); Albumin/Globulin Ratio 1.3; Alkaline Phosphatase 187 U/L (38-126); Anion Gap 3 mmol/L; Blood Urea Nitrogen 9 mg/dL (7-17); Calcium 8.9 mg/dL (8.4-10.2); Carbon Dioxide 25 mmol/L (22-30); Chloride 109 mmol/L (98-107); Globulin 2.4 g/dL; Glucose 107 mg/dL (74-99); Non-African American GFR(CKD) >90 (>60 ml/min/1.73 sqM); Potassium 4.1 mmol/L (3.5-5.1); Sodium 137 mmol/L (137-145); Total Bilirubin 0.7 mg/dL (0.2-1.3); Total Protein 5.5 g/dL (6.3-8.2)
[2024-05-10 04:06] LABS: Anisocytosis Slight; Basophils % (A) 1 %; Eosinophils # (A) 0.1 k/uL (0-0.7); Eosinophils % (A) 6 %; HCT 30.7 % (34.0-46.0); HGB 10.8 gm/dL (11.4-16.0); Lymphocytes # (A) 0.8 k/uL (1.0-4.8); Lymphocytes % (A) 47 %; MCH 30.3 pg (25.0-35.0); MCV 86.6 fL (80.0-100.0); Mean Platelet Volume 8.8; Monocytes % (A) 3 %; Neutrophils # (A) 0.6 k/uL (1.3-7.7); Neutrophils % (A) 40 %; Platelet Count 167 k/uL (150-450); RBC 3.55 m/uL (3.80-5.40); WBC 1.6 k/uL (3.8-10.6)
--- NOTE | 2024-05-10 08:43 | P.PN ---
Subjective Progress Note Date: 05/09/24 Principal diagnosis: Reason for follow-up is fever Patient is a 53-year-old female with a past medical history significant for right-sided breast cancer for the patient has been on chemotherapy to the left chest wall Mediport since January 2024 with the last chemotherapy was on , 05/05/2024, patient presenting to the hospital for evaluation of fever chills and bodyaches. On today's evaluation 05/09/2024,the patient remains to be afebrile, patient is on room air not requiring supplemental oxygen and denies any shortness of breath no chest pain or cough.Patient denies having any nausea or vomiting, no abdominal pain and no diarrhea has been reported, mention feeling slightly better. Patient white count is up to 2.03 creatinine 0.7 did have a urine culture at the other hospital which grew 30,000 colonies of staph epi Objective - Vital Signs Vital signs: Vital Signs Temp 98.7 F 05/09/24 07:21 Pulse 75 05/09/24 07:21 Resp 17 05/09/24 07:21 BP 115/77 05/09/24 07:21 Pulse Ox 94 L 05/09/24 07:21 FiO2 Intake & Output 05/08/24 05/09/24 05/09/24 18:59 06:59 18:59 Intake Total 1620 830 Balance 1620 830 Intake: Oral 1620 830 Other: Voiding Method Toilet Toilet # Voids 3 - Exam GENERAL DESCRIPTION: Middle-age female lying in bed in no distress RESPIRATORY SYSTEM: Unlabored breathing , decreased breath sounds at bases HEART: S1 S2 regular rate and rhythm , ABDOMEN: Soft , no tenderness EXTREMITIES: No edema feet - Labs CBC & Chem 7: 05/10/24 02:27 05/10/24 02:27 Labs: Abnormal Lab Results - Last 24 Hours (Table) 05/09/24 05/09/24 05/09/24 Range/Units 02:33 02:33 06:14 WBC 2.03 L (4.50-10.00) X 10*3/uL RBC 3.51 L (4.10-5.20) X 10*6/uL Hgb 10.3 L (12.0-15.0) g/dL Hct 29.8 L (37.2-46.3) % RDW 15.8 H (11.5-14.5) % Neutrophils # 1.09 L (1.80-7.70) X 10*3/uL Lymphocytes # 0.76 L (0.90-5.00) X 10*3/uL Monocytes # 0.08 L (0.20-1.00) X 10*3/uL Chloride 109 H (98-107) mmol/L Carbon Dioxide 21.5 L (21.6-31.8) mmol/L BUN 8.0 L (9.0-27.0) mg/dL BUN/Creatinine Ratio 11.43 L (12.00-20.00) Ratio Glucose 111 H 100 H (70-110) mg/dL Calcium 8.6 L (8.7-10.3) mg/dL AST 114 H (13-35) U/L ALT 184 H (8-44) U/L Alkaline Phosphatase 209 H (41-126) U/L Total Protein 5.6 L (6.2-8.2) g/dL Albumin 3.6 L (3.8-4.9) g/dL Assessment and Plan (1) Febrile neutropenia Current Visit: Yes Status: Acute Priority: High Code(s): D70.9 - NEUTROPENIA, UNSPECIFIED; R50.81 - FEVER PRESENTING WITH CONDITIONS CLASSIFIED ELSEWHERE SNOMED Code(s): 729120161 (2) SIRS (systemic inflammatory response syndrome) Current Visit: Yes Status: Acute Priority: High Code(s): R65.10 - SIRS OF NON-INFECTIOUS ORIGIN W/O ACUTE ORGAN DYSFUNCTION SNOMED Code(s): 622698566 Plan: 1patient presented to hospital with fever generalized bodyaches in this patient who did have a history of breast cancer on chemotherapy last chemo was on 05/05/2024 did have initial workup negative. 2 abdominal ultrasound did not show any acute abnormality. 3patient did have resolution of her fever will continue vancomycin and cefepime while waiting for the culture to finalize and monitor clinical course closely Dictation was produced using [employer] dictation software. please excuse any grammatical, word or spelling errors. Time with Patient: Less than 30
--- NOTE | 2024-05-10 13:38 | P.PN ---
Subjective Progress Note Date: 05/10/24 Principal diagnosis: Reason for follow-up is fever Patient is a 53-year-old female with a past medical history significant for right-sided breast cancer for the patient has been on chemotherapy to the left chest wall Mediport since January 2024 with the last chemotherapy was on , 05/05/2024, patient presenting to the hospital for evaluation of fever chills and bodyaches. On today's evaluation that is 05/10/2024, the patient continues to be afebrile, the patient is on room air and breathing comfortably, the Pt still complaining of sinus congestion and some drainage denies any chest pain shortness of breath or cough no abdominal pain or diarrhea. Patient white count is 1.6, creatinine 0.59 Vanco trough was 21 Objective - Vital Signs Vital signs: Vital Signs Temp 98.3 F 05/10/24 12:18 Pulse 78 05/10/24 12:18 Resp 16 05/10/24 12:18 BP 120/74 05/10/24 12:18 Pulse Ox 95 05/10/24 12:18 FiO2 Intake & Output 05/09/24 05/10/24 05/10/24 18:59 06:59 18:59 Intake Total 1620 240 Balance 1620 240 Intake: Oral 1620 240 Other: Voiding Method Toilet # Voids 1 3 - Exam GENERAL DESCRIPTION: Middle-age female lying in bed in no distress RESPIRATORY SYSTEM: Unlabored breathing , decreased breath sounds at bases HEART: S1 S2 regular rate and rhythm , ABDOMEN: Soft , no tenderness EXTREMITIES: No edema feet - Labs CBC & Chem 7: 05/10/24 02:27 05/10/24 02:27 Labs: Abnormal Lab Results - Last 24 Hours (Table) 05/10/24 05/10/24 Range/Units 02:27 02:27 WBC 1.6 L (3.8-10.6) k/uL RBC 3.55 L (3.80-5.40) m/uL Hgb 10.8 L (11.4-16.0) gm/dL Hct 30.7 L (34.0-46.0) % RDW 16.0 H (11.5-15.5) % Neutrophils # 0.6 L (1.3-7.7) k/uL Lymphocytes # 0.8 L (1.0-4.8) k/uL Chloride 109 H (98-107) mmol/L Glucose 107 H (74-99) mg/dL AST 121 H (14-36) U/L ALT 178 H (4-34) U/L Alkaline Phosphatase 187 H (38-126) U/L Total Protein 5.5 L (6.3-8.2) g/dL Albumin 3.1 L (3.5-5.0) g/dL Assessment and Plan (1) Febrile neutropenia Current Visit: Yes Status: Acute Priority: High Code(s): D70.9 - NEUTROPENIA, UNSPECIFIED; R50.81 - FEVER PRESENTING WITH CONDITIONS CLASSIFIED ELSEWHERE SNOMED Code(s): 510849072 (2) SIRS (systemic inflammatory response syndrome) Current Visit: Yes Status: Acute Priority: High Code(s): R65.10 - SIRS OF NON-INFECTIOUS ORIGIN W/O ACUTE ORGAN DYSFUNCTION SNOMED Code(s): 289358214 Plan: 1patient presented to hospital with fever generalized bodyaches in this patient who did have a history of breast cancer on chemotherapy last chemo was on 05/05/2024 did have initial workup negative. 2 abdominal ultrasound did not show any acute abnormality. 3patient did have resolution of her fever however keeping an eye predominantly sinus symptoms we will check a CT of the sinuses continue cefepime and vancomycin Dictation was produced using [employer] dictation software. please excuse any grammatical, word or spelling errors. Time with Patient: Less than 30
--- NOTE | 2024-05-10 13:59 | CT ---
EXAMINATION TYPE: CT sinus w con DATE OF EXAM: 05/10/2024 COMPARISON: None HISTORY: fever, sinusitis CT DLP: 460 mGycm Automated exposure control for dose reduction was used. CONTRAST: CT scan of the facial bones is performed with IV Contrast, patient injected with 100 mL of Isovue 300 . TECHNIQUE: CT scan of the sinuses is performed without contrast, axial images are obtained, coronal r eformatted images are also reviewed. FINDINGS: The paranasal sinuses including the frontal, ethmoid, sphenoid, and maxillary sinuses bila terally are well-aerated mild mucosal thickening of the maxillary sinuses. No air-fluid levels.. The ostiomeatal complex is patent bilaterally on the coronal images. Visualized portion of mastoid air cells show no abnormal opacification. The globes are intact bilate rally. IMPRESSION: 1. Mild chronic maxillary sinusitis..
--- NOTE | 2024-05-10 18:17 | P.PN ---
Subjective Progress Note Date: 05/10/24 Principal diagnosis: Hospital Course: 53-year-old female with triple negative breast cancer on chemotherapy presenting with febrile neutropenia. Currently on broad-spectrum antibiotics. ID consulted. Oncology consulted. Subjective: Patient seen at bedside. No acute events overnight. Patient states she has some mild headache and her congestion is improving but otherwise denies any other complaints Pertinent positives and negatives discussed above, a complete review of systems was preformed and all the other systems were negative. Vitals Signs Reviewed. General: non toxic, no distress, appears at stated age, normal weight Derm: no unusual rashes/lesions, warm Head: atraumatic, normocephalic, symmetric Eyes: EOMI, no lid lag, anicteric sclera, pupils equal round reactive to light ENT: Nose and ears atraumatic Neck: No cervical lymphadenopathy, trachea midline, supple Mouth: no lip lesion, mucus membranes moist Cardiovascular: S1S2 reg, no murmur, positive dorsalis pedis pulse bilateral, no edema Lungs: Decreased air entry bilaterally, no rhonchi, no rales, no accessory muscle use Abdominal: soft, nontender to palpation, no guarding Ext: muscle strength 5 out of 5 in all 4 extremities grossly, no gross muscle atrophy, no contractures, Neuro: CN II-XI grossly intact, no gross focal neuro deficits Psych: Alert, oriented, appropriate affect Data Reviewed Today: Patient Labs: WBC BCs 1.6, hemoglobin 10.8, platelets 16. Sodium 137 potassium, potassium 4.1, chloride 109 bicarb 25, BUN 9, creatinine 0.59. AST 121 ALT 178 ALP 187 Imaging: CT of the sinuses showed mild chronic maxillary sinusitis Assessment and Plan: Febrile neutropenia, likely viral upper respiratory infection, No longer febrile SIRS -Cefepime 2 g daily, Vancomycin pharmacy dosing Blood cultures, urine cultures pending Neutropenic precautions Monitor renal toxicity from vancomycin Triple negative breast cancer on Taxol, Keytruda, carboplatin -Oncology note reviewed, treatment will be delayed pending course of antibiotics and clinical course Transaminitis -Right upper quadrant ultrasound showed gallstones but normal-appearing gallbladder, CBD within normal limits Stable, will continue to monitor Sinusitis Continue Claritin and Roosevelt nasal gel ADHD Continue Adderall F none E will replete as needed N heart healthy A independently DVT ppx: Lovenox 40 mg subcu daily Code Status: FULL Anticipated discharge place: Pending clinical course Anticipated discharge time: Pending clinical course I saw and evaluated the patient during the dubon and critical portions of this encounter, and discussed the case in detail with the resident author of this note, I agree with the Assessment and Plan, and my changes, if any, are highlighted in blue. Objective - Vital Signs Vital signs: Vital Signs Temp 98.3 F 05/10/24 07:01 Pulse 78 05/10/24 07:01 Resp 16 05/10/24 07:01 BP 126/83 05/10/24 07:01 Pulse Ox 97 05/10/24 07:01 FiO2 Intake & Output 05/09/24 05/10/24 05/10/24 18:59 06:59 18:59 Intake Total 1620 Balance 1620 Intake: Oral 1620 Other: Voiding Method Toilet # Voids 1 3 - Labs CBC & Chem 7: 05/10/24 02:27 05/10/24 02:27 Labs: Abnormal Lab Results - Last 24 Hours (Table) 05/09/24 05/09/24 05/10/24 Range/Units 02:33 02:33 02:27 WBC 2.03 L (4.50-10.00) X 10*3/uL RBC 3.51 L (4.10-5.20) X 10*6/uL Hgb 10.3 L (12.0-15.0) g/dL Hct 29.8 L (37.2-46.3) % RDW 15.8 H (11.5-14.5) % Neutrophils # 1.09 L (1.80-7.70) X 10*3/uL Lymphocytes # 0.76 L (0.90-5.00) X 10*3/uL Monocytes # 0.08 L (0.20-1.00) X 10*3/uL Chloride 109 H (98-107) mmol/L Carbon Dioxide 21.5 L (21.6-31.8) mmol/L BUN 8.0 L (9.0-27.0) mg/dL BUN/Creatinine Ratio 11.43 L (12.00-20.00) Ratio Glucose 111 H 107 H (70-110) mg/dL Calcium 8.6 L (8.7-10.3) mg/dL AST 114 H 121 H (13-35) U/L ALT 184 H 178 H (8-44) U/L Alkaline Phosphatase 209 H 187 H (41-126) U/L Total Protein 5.6 L 5.5 L (6.2-8.2) g/dL Albumin 3.6 L 3.1 L (3.8-4.9) g/dL 05/10/24 Range/Units 02:27 WBC 1.6 L (4.50-10.00) X 10*3/uL RBC 3.55 L (4.10-5.20) X 10*6/uL Hgb 10.8 L (12.0-15.0) g/dL Hct 30.7 L (37.2-46.3) % RDW 16.0 H (11.5-14.5) % Neutrophils # 0.6 L (1.80-7.70) X 10*3/uL Lymphocytes # 0.8 L (0.90-5.00) X 10*3/uL Monocytes # (0.20-1.00) X 10*3/uL Chloride (98-107) mmol/L Carbon Dioxide (21.6-31.8) mmol/L BUN (9.0-27.0) mg/dL BUN/Creatinine Ratio (12.00-20.00) Ratio Glucose (70-110) mg/dL Calcium (8.7-10.3) mg/dL AST (13-35) U/L ALT (8-44) U/L Alkaline Phosphatase (41-126) U/L Total Protein (6.2-8.2) g/dL Albumin (3.8-4.9) g/dL
[2024-05-11] MEDS: VANCOMYCIN TROUGH DUE 1 EACH MISC MISCELLANE ONE (08:02)
--- NOTE | 2024-05-11 11:46 | P.PN ---
Subjective Principal diagnosis: Hospital Course: 53-year-old female with triple negative breast cancer on chemotherapy presenting with febrile neutropenia. Currently on broad-spectrum antibiotics. ID consulted. Oncology consulted. Subjective: Patient examined at bedside. No acute events overnight. She has remained af ebrile. Patient states she had some mild headache relieved with Tylenol and some nausea she believes to be due to the chemo therapy but it is tolerable. Pertinent positives and negatives discussed above, a complete review of systems was preformed and all the other systems were negative. Vitals Signs Reviewed. General: non toxic, no distress, appears at stated age, normal weight Derm: no unusual rashes/lesions, warm Head: atraumatic, normocephalic, symmetric Eyes: EOMI, no lid lag, anicteric sclera, pupils equal round reactive to light ENT: Nose and ears atraumatic Neck: No cervical lymphadenopathy, trachea midline, supple Mouth: no lip lesion, mucus membranes moist Cardiovascular: S1S2 reg, no murmur, positive dorsalis pedis pulse bilateral, no edema Lungs: Decreased air entry bilaterally, no rhonchi, no rales, no accessory muscle use Abdominal: soft, nontender to palpation, no guarding Ext: muscle strength 5 out of 5 in all 4 extremities grossly, no gross muscle atrophy, no contractures, Neuro: CN II-XI grossly intact, no gross focal neuro deficits Psych: Alert, oriented, appropriate affect Data Reviewed Today: Patient Labs: Will review labs once available Imaging: No new imaging Assessment and Plan: Febrile neutropenia, likely viral upper respiratory infection, No longer febrile SIRS -Cefepime 2 g daily, Vancomycin pharmacy dosing Blood cultures, urine cultures pending Neutropenic precautions Monitor renal toxicity from vancomycin Triple negative breast cancer on Taxol, Keytruda, carboplatin -Oncology note reviewed, treatment will be delayed pending course of antibiotics and clinical course Transaminitis -Right upper quadrant ultrasound showed gallstones but normal-appearing gallbladder, CBD within normal limits Stable, will continue to monitor Sinusitis Continue Claritin and Guys nasal gel ADHD Continue Adderall F none E will replete as needed N heart healthy A independently DVT ppx: Lovenox 40 mg subcu daily Code Status: FULL Anticipated discharge place: Pending clinical course I saw and evaluated the patient during the dubon and critical portions of this encounter, and discussed the case in detail with the resident author of this note, I agree with the Assessment and Plan, and my changes, if any, are highlighted in blue. Objective - Vital Signs Vital signs: Vital Signs Temp 97.8 F 05/11/24 06:52 Pulse 79 05/11/24 06:52 Resp 15 05/11/24 06:52 BP 124/81 05/11/24 06:52 Pulse Ox 96 05/11/24 06:52 FiO2 Intake & Output 05/10/24 05/11/24 05/11/24 18:59 06:59 18:59 Intake Total 2400 Balance 2400 Intake: Oral 2400 Other: Voiding Method Toilet # Voids 7 3 # Bowel Movements 1 - Labs CBC & Chem 7: 05/11/24 07:10 05/11/24 07:10
[2024-05-11 12:15] LABS: ALT 265 U/L (4-34); AST 177 U/L (14-36); African American GFR (CKD) >90 (>60 ml/min/1.73 sqM); Albumin 3.8 g/dL (3.5-5.0); Albumin/Globulin Ratio 1.4; Alkaline Phosphatase 217 U/L (38-126); Anion Gap 5 mmol/L; Blood Urea Nitrogen 11 mg/dL (7-17); Calcium 9.6 mg/dL (8.4-10.2); Carbon Dioxide 25 mmol/L (22-30); Chloride 106 mmol/L (98-107); Globulin 2.8 g/dL; Glucose 102 mg/dL (74-99); Non-African American GFR(CKD) >90 (>60 ml/min/1.73 sqM); Sodium 136 mmol/L (137-145); Total Bilirubin 0.6 mg/dL (0.2-1.3); Total Protein 6.6 g/dL (6.3-8.2)
[2024-05-11 12:29] LABS: Basophils % (A) 1 %; Eosinophils # (A) 0.1 k/uL (0-0.7); Eosinophils % (A) 6 %; HCT 34.7 % (34.0-46.0); HGB 11.9 gm/dL (11.4-16.0); Lymphocytes # (A) 0.7 k/uL (1.0-4.8); Lymphocytes % (A) 36 %; MCH 29.7 pg (25.0-35.0); MCHC 34.3 g/dL (31.0-37.0); MCV 86.4 fL (80.0-100.0); Mean Platelet Volume 9.3; Monocytes # (A) 0.1 k/uL (0-1.0); Monocytes % (A) 4 %; Neutrophils % (A) 50 %; Platelet Count 245 k/uL (150-450); RBC 4.02 m/uL (3.80-5.40); RDW 15.5 % (11.5-15.5); WBC 2.1 k/uL (3.8-10.6)
--- NOTE | 2024-05-11 12:38 | P.PN ---
Subjective Progress Note Date: 05/11/24 Principal diagnosis: Reason for follow-up is fever Patient is a 53-year-old female with a past medical history significant for right-sided breast cancer for the patient has been on chemotherapy to the left chest wall Mediport since January 2024 with the last chemotherapy was on , 05/05/2024, patient presenting to the hospital for evaluation of fever chills and bodyaches. On today's evaluation that is 05/11/2024, Patient is afebrile patient is currently on room air and denies having any shortness of breath, the patient denies any chest pain or cough, the patient denies any nausea vomiting did not have any abdominal pain and no diarrhea complaining of some sinus congestion but no pain or any epistaxis. Patient white count 2.1, creatinine 0.53 Vanco trough is 18.2 cultures have been negative so far CT of the sinuses did shows mild chronic maxillary sinusitis Objective - Vital Signs Vital signs: Vital Signs Temp 97.8 F 05/11/24 06:52 Pulse 79 05/11/24 06:52 Resp 15 05/11/24 06:52 BP 124/81 05/11/24 06:52 Pulse Ox 96 05/11/24 06:52 FiO2 Intake & Output 05/10/24 05/11/24 05/11/24 18:59 06:59 18:59 Intake Total 2400 1080 Balance 2400 1080 Intake: Oral 2400 1080 Other: Voiding Method Toilet # Voids 7 3 # Bowel Movements 1 - Exam GENERAL DESCRIPTION: Middle-age female lying in bed in no distress RESPIRATORY SYSTEM: Unlabored breathing , decreased breath sounds at bases HEART: S1 S2 regular rate and rhythm , ABDOMEN: Soft , no tenderness EXTREMITIES: No edema feet - Labs CBC & Chem 7: 05/11/24 07:10 05/11/24 07:10 Assessment and Plan (1) Febrile neutropenia Current Visit: Yes Status: Acute Priority: High Code(s): D70.9 - NEUTROPENIA, UNSPECIFIED; R50.81 - FEVER PRESENTING WITH CONDITIONS CLASSIFIED ELSEWHERE SNOMED Code(s): 494819469 (2) SIRS (systemic inflammatory response syndrome) Current Visit: Yes Status: Acute Priority: High Code(s): R65.10 - SIRS OF NON-INFECTIOUS ORIGIN W/O ACUTE ORGAN DYSFUNCTION SNOMED Code(s): 584500869 Plan: 1patient presented to hospital with fever generalized bodyaches in this patient who did have a history of breast cancer on chemotherapy last chemo was on 05/05/2024 did have initial workup negative. 2 abdominal ultrasound did not show any acute abnormality. 3patient did have resolution of her fever, CT of the sinuses did shows mild chronic nasal sinusitis, patient to continue cefepime and will discontinue vancomycin Dictation was produced using [employer] dictation software. please excuse any grammatical, word or spelling errors. Time with Patient: Less than 30
--- NOTE | 2024-05-11 16:34 | P.PN ---
Subjective Progress Note Date: 05/11/24 Principal diagnosis: Fever, triple neg breast cancer In f/u today patient reports feeling good today. No fevers, nausea, she is tolerating oral intake, her sinus pressure is improving, she was able to wear glasses without as much pain, her eyes are not as swollen, she does still have a slight frontal headache. No other complaints 10 point review of systems. She is independently ambulatory Objective - Vital Signs Vital signs: Vital Signs Temp 97.7 F 05/11/24 14:00 Pulse 84 05/11/24 14:00 Resp 16 05/11/24 14:00 BP 130/76 05/11/24 14:00 Pulse Ox 96 05/11/24 14:00 FiO2 Intake & Output 05/10/24 05/11/24 05/11/24 18:59 06:59 18:59 Intake Total 2400 1560 Balance 2400 1560 Intake: Oral 2400 1560 Other: Voiding Method Toilet # Voids 7 3 # Bowel Movements 1 - Constitutional General appearance: Present: cooperative, no acute distress, obese - EENT Eyes: Present: anicteric sclerae, EOMI ENT: Present: hearing grossly normal - Respiratory Details: Respirations even and unlabored - Cardiovascular Details: Skin warm, well-perfused - Peripheral edema foot Peripheral Edema: bilateral: Trace - Neurologic Neurologic: Present: CNII-XII intact - Musculoskeletal Musculoskeletal: Present: strength equal bilaterally - Psychiatric Psychiatric: Present: A&O x's 3, appropriate affect, intact judgment & insight - Labs CBC & Chem 7: 05/11/24 07:10 05/11/24 07:10 Labs: Abnormal Lab Results - Last 24 Hours (Table) 05/11/24 05/11/24 Range/Units 07:10 07:10 WBC 2.1 L (3.8-10.6) k/uL Neutrophils # 1.0 L (1.3-7.7) k/uL Lymphocytes # 0.7 L (1.0-4.8) k/uL Sodium 136 L (137-145) mmol/L Glucose 102 H (74-99) mg/dL AST 177 H (14-36) U/L ALT 265 H (4-34) U/L Alkaline Phosphatase 217 H (38-126) U/L - Imaging and Cardiology Sinus CT scan report reviewed. Paranasal sinuses well aerated with mild mucosal thickening of the maxillary sinuses. Reported as mild chronic maxillary sinusitis Assessment and Plan (1) SIRS (systemic inflammatory response syndrome) Current Visit: Yes Status: Resolved Priority: High Code(s): R65.10 - SIRS OF NON-INFECTIOUS ORIGIN W/O ACUTE ORGAN DYSFUNCTION SNOMED Code(s): 630608274 (2) Febrile neutropenia Current Visit: Yes Status: Resolved Priority: High Code(s): D70.9 - NEUTROPENIA, UNSPECIFIED; R50.81 - FEVER PRESENTING WITH CONDITIONS CLASSIFIED ELSEWHERE SNOMED Code(s): 592461917 (3) Triple negative breast cancer Current Visit: Yes Status: Acute Priority: Medium Code(s): C50.919 - MALIGNANT NEOPLASM OF UNSP SITE OF UNSPECIFIED FEMALE BREAST SNOMED Code(s): 846759417 Plan: SIRS, febrile neutropenia -No fevers for more than 48 hours -Pancultures pending reporting -Pt on abx, ID following. Pending transition to oral -WBC 2.1 today, ANC 1000 -LFTs progressive. US abd biliary sludge, gall stones. Possible Surgical consult? Secondary to medications? Cont lab testing. IM following. Triple neg breast cancer -On treatment -Treatment will be delayed until she has completed course of abx and her current acute condition is adequately treated/resolved Cont claritin and saline nasal spray for sinus c/o for now, they are a little better.
[2024-05-12 11:10] LABS: Basophils # (A) 0.02 X 10*3/uL (0.00-0.10); Basophils % (A) 0.9 %; Eosinophils # (A) 0.14 X 10*3/uL (0.04-0.35); HCT 32.9 % (37.2-46.3); HGB 11.3 g/dL (12.0-15.0); Lymphocytes # (A) 0.76 X 10*3/uL (0.90-5.00); Lymphocytes % (A) 32.8 %; MCH 29.3 pg (27.0-32.0); MCHC 34.3 g/dL (32.0-37.0); MCV 85.2 FL (80.0-97.0); Monocytes # (A) 0.19 X 10*3/uL (0.20-1.00); Monocytes % (A) 8.2 %; NRBC Per 100 WBC 0 X 10*3/uL (0.00-0.01); Neutrophils # (A) 1.18 X 10*3/uL (1.80-7.70); Neutrophils % (A) 50.8 %; Platelet Count 254 X 10*3/uL (140-440); RBC 3.86 X 10*6/uL (4.10-5.20); RDW 15.8 % (11.5-14.5); WBC 2.32 X 10*3/uL (4.50-10.00)
[2024-05-12 11:18] LABS: Magnesium 1.8 mg/dL (1.5-2.4)
[2024-05-12 11:19] LABS: ALT 225 U/L (8-44); AST 131 U/L (13-35); Albumin 3.9 g/dL (3.8-4.9); Albumin/Globulin Ratio 1.77 Ratio (1.60-3.17); Alkaline Phosphatase 206 U/L (41-126); BUN/Creat Ratio 14.83 Ratio (12.00-20.00); Blood Urea Nitrogen 8.9 mg/dL (9.0-27.0); Calcium 9.1 mg/dL (8.7-10.3); Chloride 105 mmol/L (96-109); Globulin 2.2 g/dL (1.6-3.3); Glucose 116 mg/dL (70-110); Potassium 3.9 mmol/L (3.5-5.5); Sodium 140 mmol/L (135-145); Total Bilirubin 0.3 mg/dL (0.3-1.2); Total Protein 6.1 g/dL (6.2-8.2)
--- NOTE | 2024-05-12 12:00 | P.PN ---
Subjective Progress Note Date: 05/12/24 Principal diagnosis: Fever, triple neg breast cancer, on treatment In f/u today patient reports feeling good today, didn't sleep well, ST persists this AM, no progressive. Tolerating oral intake, no other c/o, she is independently ambulatory, feels she is ready to go home. Objective - Vital Signs Vital signs: Vital Signs Temp 97.7 F 05/12/24 07:04 Pulse 82 05/12/24 07:04 Resp 15 05/12/24 07:04 BP 123/80 05/12/24 07:04 Pulse Ox 99 05/12/24 07:04 FiO2 Intake & Output 05/11/24 05/12/24 05/12/24 18:59 06:59 18:59 Intake Total 3420 240 Balance 3420 240 Intake: Oral 3420 240 Other: Voiding Method Toilet # Voids 6 1 # Bowel Movements 2 - Constitutional General appearance: Present: cooperative, no acute distress, obese - EENT Eyes: Present: anicteric sclerae, EOMI ENT: Present: hearing grossly normal - Respiratory Details: Respirations even and unlabored at rest - Cardiovascular Details: Skin warm and dry to the touch, well-perfused - Peripheral edema leg Peripheral Edema: bilateral: None - Integumentary Integumentary: Present: normal - Neurologic Neurologic: Present: CNII-XII intact - Musculoskeletal Musculoskeletal: Present: strength equal bilaterally - Psychiatric Psychiatric: Present: A&O x's 3, appropriate affect, intact judgment & insight - Labs CBC & Chem 7: 05/12/24 07:08 05/12/24 07:08 Labs: Abnormal Lab Results - Last 24 Hours (Table) 05/11/24 05/11/24 05/12/24 Range/Units 07:10 07:10 07:08 WBC 2.1 L 2.32 L (3.8-10.6) k/uL RBC 3.86 L (4.10-5.20) X 10*6/uL Hgb 11.3 L (12.0-15.0) g/dL Hct 32.9 L (37.2-46.3) % RDW 15.8 H (11.5-14.5) % Neutrophils # 1.0 L 1.18 L (1.3-7.7) k/uL Lymphocytes # 0.7 L 0.76 L (1.0-4.8) k/uL Monocytes # 0.19 L (0.20-1.00) X 10*3/uL Sodium 136 L (137-145) mmol/L Anion Gap (4.00-12.00) mmol/L BUN (9.0-27.0) mg/dL Glucose 102 H (74-99) mg/dL AST 177 H (14-36) U/L ALT 265 H (4-34) U/L Alkaline Phosphatase 217 H (38-126) U/L Total Protein (6.2-8.2) g/dL 05/12/24 Range/Units 07:08 WBC (3.8-10.6) k/uL RBC (4.10-5.20) X 10*6/uL Hgb (12.0-15.0) g/dL Hct (37.2-46.3) % RDW (11.5-14.5) % Neutrophils # (1.3-7.7) k/uL Lymphocytes # (1.0-4.8) k/uL Monocytes # (0.20-1.00) X 10*3/uL Sodium (137-145) mmol/L Anion Gap 13.00 H (4.00-12.00) mmol/L BUN 8.9 L (9.0-27.0) mg/dL Glucose 116 H (74-99) mg/dL AST 131 H (14-36) U/L ALT 225 H (4-34) U/L Alkaline Phosphatase 206 H (38-126) U/L Total Protein 6.1 L (6.2-8.2) g/dL Assessment and Plan (1) SIRS (systemic inflammatory response syndrome) Current Visit: Yes Status: Resolved Priority: High Code(s): R65.10 - SIRS OF NON-INFECTIOUS ORIGIN W/O ACUTE ORGAN DYSFUNCTION SNOMED Code(s): 151097753 (2) Febrile neutropenia Current Visit: Yes Status: Resolved Priority: High Code(s): D70.9 - NEUTROPENIA, UNSPECIFIED; R50.81 - FEVER PRESENTING WITH CONDITIONS CLASSIFIED ELSEWHERE SNOMED Code(s): 441554039 (3) Triple negative breast cancer Current Visit: Yes Status: Acute Priority: Medium Code(s): C50.919 - MALIGNANT NEOPLASM OF UNSP SITE OF UNSPECIFIED FEMALE BREAST SNOMED Code(s): 715582377 Plan: SIRS, febrile neutropenia -No fevers for more than 48 hours -Pancultures pending reporting -Pt on abx, ID following. Pending transition to oral -WBC 2.3 today, ANC 1.180 -LFTs improving today. US abd biliary sludge, gall stones. Possible Surgical consult? Secondary to medications? Cont lab testing. IM following. Triple neg breast cancer -On treatment -Treatment will be delayed until she has completed course of abx and her current acute condition is adequately treated/resolved. She is aware that she needs to contact chemo infusion nurses as to when she will complete abx.
[2024-05-12 12:47] VITALS: BP 116/74; PULSE 84; RESP 16; TEMP 98.3
[2024-05-12] MEDS: CALCIUM CARBONATE 500 MG CHEWABLE PO PRN (13:45)
--- NOTE | 2024-05-12 13:56 | P.DS ---
Providers Date of admission: 05/07/24 14:07 Discharge Diagnosis: Febrile neutropenia SIRS Triple negative breast cancer Transaminitis Sinusitis ADHD Hospital Course: 53-year-old female with past medical history of triple negative breast cancer on Taxol, Keytruda, carboplatin presented to the emergency room on Monday 05/07 with fever, chills, body aches, and generalized malaise. He stated the fever started on Thursday but, but subsided with Tylenol. She underwent chemotherapy on and then night into Thursday she had all the above symptoms. In the ER, her labs were significant for severe neutropenia and transaminitis. Urine and blood cultures were sent. An ultrasound showed hepatomegaly with some biliary sludge and normal gallbladder and CBD. The patient was admitted for evaluation of febrile neutropenia. Patient was seen by oncology and infectious disease. Patient's white count have improved and she has been remained afebrile since admission. Throughout her stay patient complained of some congestion and cough and a sinus CT was done which showed chronic maxillary sinusitis. Patient is tolerating oral intake, has remained afebrile, and overall feels well. Patient will be discharged home with her . She will be discharged on a course of oral Augmentin for 7 days. She will follow-up regarding her chemotherapy treatments outpatient. She also has an appointment on the with her PCP Dr. Jeffers. Pt seen and examined at bedside: Patient states she is feeling much better and is excited for discharge. She denies any fevers, chills, vomiting, diarrhea. She states she still has some nausea but it is tolerable and due to her chemo. Vital signs reviewed and stable. Remains afebrile, normotensive, hemodynamically stable, and saturating well on room air. General: non toxic, no distress, appears at stated age, normal weight Derm: no unusual rashes/lesions, warm Head: atraumatic, normocephalic, symmetric Eyes: EOMI, no lid lag, anicteric sclera, pupils equal round reactive to light ENT: Nose and ears atraumatic Neck: No cervical lymphadenopathy, trachea midline, supple Mouth: no lip lesion, mucus membranes moist Cardiovascular: S1S2 reg, no murmur, positive dorsalis pedis pulse bilateral, no edema Lungs: Decreased air entry bilaterally, no rhonchi, no rales, no accessory muscle use Abdominal: soft, nontender to palpation, no guarding Ext: muscle strength 5 out of 5 in all 4 extremities grossly, no gross muscle atrophy, no contractures, Neuro: CN II-XI grossly intact, no gross focal neuro deficits Psych: Alert, oriented, appropriate affect A total of 30 minutes were spent preparing this complex discharge summary. Patient was discharged on May 12, 2024 at 13:51pm. Attending physician: Santos Zamora MD Consults: 05/07/24 21:52 Consult Physician Routine Consulting Provider: Josh Virk Consult Reason/Comments: Breast Cancer Do you want consulting provider notified?: Already Contacted Consult Physician Routine Consulting Provider: Ruthann Bautista Consult Reason/Comments: Infectious Disease Do you want consulting provider notified?: Already Contacted Primary care physician: Stated None Hospital Course: Patient was seen and examined by me and the resident. I agree with the subjective and objective as above. We discussed the assessment and plan as documented below: Patient reports no complaints. Feeling well. CBC and CMP significant for WBC 2.32, RBC 3.86, Hg 11.3, Hct 32.9, AG 13, BUN 8.9, glu 116, AST 131, ALT 225, alk phos 206, total protein 6.1. Cultures have remained negative. Dr Bautista recommends 7 days of Augmentin. Plan is for discharge home today. She has an appointment with Dr. Virk on 05/19/2024 at 9:00AM. Discharge Diagnosis: Febrile neutropenia, likely viral upper respiratory infection, No longer febrile SIRS Triple negative breast cancer on Taxol, Keytruda, carboplatin Transaminitis Cholelithiasis Sinusitis ADHD This complex discharge took 30 minutes to complete. Patient Condition at Discharge: Stable Plan - Discharge Summary New Discharge Prescriptions: New Amoxic-Pot Clav 875-125Mg [Augmentin 875-125] 1 tab PO Q12HR 7 Days #14 tab Continue Multivitamins, Thera [Multivitamin (formulary)] 1 tab PO DAILY Dextroamphetamine/Amphetamine [Adderall Xr] 30 mg PO QAM Ibuprofen [Motrin] 800 mg PO Q8H PRN PRN Reason: Pain Discharge Medication List Multivitamins, Thera [Multivitamin (formulary)] 1 tab PO DAILY 09/05/19 [History] Dextroamphetamine/Amphetamine [Adderall Xr] 30 mg PO QAM 04/03/21 [History] Ibuprofen [Motrin] 800 mg PO Q8H PRN 04/03/21 [History] Amoxic-Pot Clav 875-125Mg [Augmentin 875-125] 1 tab PO Q12HR 7 Days #14 tab 05/12/24 [Rx] Follow up Appointment(s)/Referral(s): Josh Virk MD [STAFF PHYSICIAN] - 05/19/24 9:00 am (This is an appt for chemo. MUST complete antibiotics before having chemo. Please call office and let chemo nurse know when antibiotics will be completed. They will adjust your chemo appt accordingly. Thanks!) Discharge Disposition: HOME SELF-CARE
--- NOTE | 2024-05-12 15:34 | P.PN ---
Subjective Progress Note Date: 05/12/24 Principal diagnosis: Reason for follow-up is fever Patient is a 53-year-old female with a past medical history significant for right-sided breast cancer for the patient has been on chemotherapy to the left chest wall Mediport since January 2024 with the last chemotherapy was on , 05/05/2024, patient presenting to the hospital for evaluation of fever chills and bodyaches. On today's evaluation that is 05/12/2024, patient has been afebrile, patient is breathing comfortably and is currently on room air, patient denies having any significant cough no chest pain shortness of breath, patient denies nausea vomiting or diarrhea and no abdominal pain, patient feeling better wants to go home. White count is 12.32, creatinine 0.6 Objective - Vital Signs Vital signs: Vital Signs Temp 97.7 F 05/12/24 07:04 Pulse 82 05/12/24 07:04 Resp 15 05/12/24 07:04 BP 123/80 05/12/24 07:04 Pulse Ox 99 05/12/24 07:04 FiO2 Intake & Output 05/11/24 05/12/24 05/12/24 18:59 06:59 18:59 Intake Total 3420 240 Balance 3420 240 Intake: Oral 3420 240 Other: Voiding Method Toilet # Voids 6 1 # Bowel Movements 2 - Exam GENERAL DESCRIPTION: Middle-age female lying in bed in no distress RESPIRATORY SYSTEM: Unlabored breathing , decreased breath sounds at bases HEART: S1 S2 regular rate and rhythm , ABDOMEN: Soft , no tenderness EXTREMITIES: No edema feet - Labs CBC & Chem 7: 05/12/24 07:08 05/12/24 07:08 Labs: Abnormal Lab Results - Last 24 Hours (Table) 05/11/24 05/11/24 05/12/24 Range/Units 07:10 07:10 07:08 WBC 2.1 L 2.32 L (3.8-10.6) k/uL RBC 3.86 L (4.10-5.20) X 10*6/uL Hgb 11.3 L (12.0-15.0) g/dL Hct 32.9 L (37.2-46.3) % RDW 15.8 H (11.5-14.5) % Neutrophils # 1.0 L 1.18 L (1.3-7.7) k/uL Lymphocytes # 0.7 L 0.76 L (1.0-4.8) k/uL Monocytes # 0.19 L (0.20-1.00) X 10*3/uL Sodium 136 L (137-145) mmol/L Anion Gap (4.00-12.00) mmol/L BUN (9.0-27.0) mg/dL Glucose 102 H (74-99) mg/dL AST 177 H (14-36) U/L ALT 265 H (4-34) U/L Alkaline Phosphatase 217 H (38-126) U/L Total Protein (6.2-8.2) g/dL 05/12/24 Range/Units 07:08 WBC (3.8-10.6) k/uL RBC (4.10-5.20) X 10*6/uL Hgb (12.0-15.0) g/dL Hct (37.2-46.3) % RDW (11.5-14.5) % Neutrophils # (1.3-7.7) k/uL Lymphocytes # (1.0-4.8) k/uL Monocytes # (0.20-1.00) X 10*3/uL Sodium (137-145) mmol/L Anion Gap 13.00 H (4.00-12.00) mmol/L BUN 8.9 L (9.0-27.0) mg/dL Glucose 116 H (74-99) mg/dL AST 131 H (14-36) U/L ALT 225 H (4-34) U/L Alkaline Phosphatase 206 H (38-126) U/L Total Protein 6.1 L (6.2-8.2) g/dL Assessment and Plan (1) Febrile neutropenia Status: Resolved Priority: High Code(s): D70.9 - NEUTROPENIA, UNSPECIFIED; R50.81 - FEVER PRESENTING WITH CONDITIONS CLASSIFIED ELSEWHERE SNOMED Code(s): 012912838 (2) SIRS (systemic inflammatory response syndrome) Status: Resolved Priority: High Code(s): R65.10 - SIRS OF NON-INFECTIOUS ORIGIN W/O ACUTE ORGAN DYSFUNCTION SNOMED Code(s): 410781151 Plan: 1patient presented to hospital with fever generalized bodyaches in this patient who did have a history of breast cancer on chemotherapy last chemo was on 05/05/2024 did have initial workup negative. 2 abdominal ultrasound did not show any acute abnormality. 3patient did have resolution of her fever, CT of the sinuses did shows mild chronic nasal sinusitis, patient to finish therapy short course of oral Augmentin at discharge discussed with the resident physician Dictation was produced using [employer] dictation software. please excuse any grammatical, word or spelling errors. Time with Patient: Less than 30
--- NOTE | 2024-06-06 06:16 | CDI ---
Documentation Clarification Form Date: 06/06/2024 06:08:34 AM From: Karey Hooper Admit Date: 05/07/2024 02:07:00 PM Patient Name: Andreina Sommer Visit Number: [id number] Discharge Date: 05/12/2024 03:00:00 PM ATTENTION: The Clinical Documentation Specialists (CDI) and [facility] Coding Staff appreciate your assistance in clarifying documentation. Please respond to the clarification below the line at the bottom and electronically sign. The CDI & [facility] Coding staff will review the response and follow-up if needed. Please note: Queries are made part of the Legal Health Record. If you have any questions, please contact the author of this message via ITS. Doctor/Provider: Santos Zamora Conflicting documentation has been found in the medical record. As attending physician, please provide clarification. 05/08/24 PN "Neutropenic sepsis due to chemotherapy." 05/07/24 DCS "Neutropenic fever with SIRS" History/Risk Factors: Neutropenia, chemotherapy, fever Clinical Indicators: WBC's 1.5 Treatment: broad-spectrum antibiotics Vanco and Cefepime Please clarify which diagnosis is most appropriate: [ ] Neutropenic sepsis [ x ] Febrile neutropenia SIRS [ ] Other (please specify) [ ] Unable to determine MTDD
== END 2024-05-12 15:00 | disposition home or self-care (01) | DRG 810 ==
LOC: 5NMEDONC 14:07
PROVIDERS: ADMIT Student in an Organized Health Care Education/Training Program; ATTEND Student in an Organized Health Care Education/Training Program
DX: D70.1 Agranulocytosis secondary to cancer chemotherapy (principal); F90.9 Attention-deficit hyperactivity disorder, unspecified type; J06.9 Acute upper respiratory infection, unspecified; J32.0 Chronic maxillary sinusitis; K80.20 Calculus of gallbladder without cholecystitis without obstruction; T45.1X5A Adverse effect of antineoplastic and immunosuppressive drugs, initial encounter; Z17.1 Estrogen receptor negative status [ER-]; C50.919 Malignant neoplasm of unspecified site of unspecified female breast; Z85.828 Personal history of other malignant neoplasm of skin; R74.01 Elevation of levels of liver transaminase levels; M19.90 Unspecified osteoarthritis, unspecified site; Z79.899 Other long term (current) drug therapy
CPT/HCPCS: 70487; 76705; 80048; 80053; 80202; 83735; 85025; 87040; 99285

== ENCOUNTER → 2024-05-19 | Outpatient (CLI) | payer BC ==
[2024-05-19 11:51] VITALS: BP 146/99; PULSE 111; RESP 17; TEMP 98.1
--- NOTE | 2024-05-19 12:22 | P.PN ---
Subjective Progress Note Date: 05/19/24 Principal diagnosis: [id number]; stage IIB, right breast abnormal right breast mammogram History of present illness: Andreina is a 53 year old female who had a bilateral mammogram on 02-03-24. This led to a right breast ultrasound. This showed a 2.6 by 3 cm lesion in the UIQ of the right breast as well as an enlarged node with the cortex 0.4 cm. The patient did not have anything of concern in the left breast. The radiographs were personally reviewed with Dr. Bolden. The patient states her boyfriend found a lump in her right breast the end of December. She does not complain of any pain in her breast. The patient states that since it was brought to her attention she can feel it and it feels like it has gotten slightly larger. She is not complaining of any nipple discharge or skin changes. She has not had any recent trauma or infection in her breast. She is never had any surgery on her breast. core biopsy on 02-04-24 [id number]; stage IIB Ultrasound-guided core biopsy right axilla enlarged lymph node (-) case presented at tumor board on 02-23-24 recommend neoadjuvant chemotherapy note radiation oncology 04-05-24 reviewed, patient on [id number] initiated, will require radiation therapy most likely after surgery She just started her third cycle of chemotherapy today, last week she was hospitalized for 6 days with a sinus infection (carboplatin, taxol, keytruda first 12 weeks, once a week; second 12 weeks two different but she does not know what they are yet or duration or frequency) The lump in her breast has resolved as per the patient. A PET scan was done results pending genetic testing done results pending (she was told results were negative) Caffeine: 1 cup/day nicotine: 1/2 PPD for 32 years, stopped July 2021 chocolate: weekly BCP: for about 2 years in remote past hormones: none Family History: maternal aunt: breast cancer Hormonal History: menarche: 12 , breast fed: no, age at first : 19 menopause: Uterine ablation approximately 2009 Hormones: Negative Surgical history: right foot back surgery right carpel tunnel port placed for chemotherapy Medical History: adderol for focus Social History: Nicotine: As above Alcohol: Several times a week Drugs: Negative Review of Systems - Constitutional Reports sweats - EENT Eyes: denies blurred vision Ears: bilateral: tinnitus Ears, nose, mouth and throat: Denies dysphagia - Breasts bilateral: as per HPI - Cardiovascular Denies chest pain, Denies shortness of breath - Respiratory Denies cough - Gastrointestinal Reports as per HPI - Genitourinary Genitourinary: Denies dysuria, Denies hematuria Menstruation: Reports postmenopausal - Musculoskeletal Reports myalgias - Integumentary Denies rash, Denies unusual bruising - Neurological Denies headaches, Denies syncope - Psychiatric Reports as per HPI - Endocrine Reports as per HPI - Hematologic/Lymphatic Reports as per HPI - Allergic/Immunologic Reports as per HPI Past Medical History Past Medical History: Chest Pain / Angina, Osteoarthritis (OA) Additional Past Medical History / Comment(s): SQUAMOUS CELL SKIN CANCER, occ palpitations, History of Any Multi-Drug Resistant Organisms: None Reported Past Surgical History: Back Surgery, Tubal Ligation, Uterine Ablation Additional Past Surgical History / Comment(s): laminectomy, skin cancer removed from chest and leg, colonoscopy Past Anesthesia/Blood Transfusion Reactions: No Reported Reaction, Unable to Obtain Additional Past Anesthesia/Blood Transfusion Reaction / Comm: no family hx Smoking Status: Current every day smoker - Past Family History Mother Family Medical History: Unable to Obtain Medications and Allergies Home Medications Medication Instructions Recorded Confirmed Type Multivitamins, Thera [Multivitamin 1 tab PO DAILY 09/05/19 04/05/21 History (formulary)] Dextroamphetamine/Amphetamine 20 mg PO QAM 04/03/21 04/05/21 History [Adderall Xr] Ibuprofen [Motrin] 800 mg PO Q8H PRN 04/03/21 04/05/21 History HYDROcodone/APAP 5-325MG [[place] 1 tab PO Q6HR PRN 7 Days #30 tab 04/05/21 Rx 5-325] Allergies Allergy/AdvReac Type Severity Reaction Status Date / Time No Known Allergies Allergy Verified 04/05/21 11:36 Objective - Vital Signs Vital signs: Vital Signs Temp 98.1 F 05/19/24 11:48 Pulse 111 H 05/19/24 11:48 Resp 17 05/19/24 11:48 BP 146/99 05/19/24 11:48 Pulse Ox 97 05/19/24 11:48 FiO2 Intake & Output 05/18/24 05/19/24 05/19/24 18:59 06:59 18:59 Weight 99.79 kg - Constitutional General appearance: Present: cooperative - EENT Eyes: Present: EOMI ENT: Present: hearing grossly normal - Neck Neck: Present: normal ROM - Respiratory Respiratory: bilateral: CTA - Cardiovascular Heart sounds: normal: S1, S2 - Integumentary Integumentary: Present: normal turgor - Musculoskeletal Musculoskeletal: Present: gait normal - Psychiatric Psychiatric: Present: A&O x's 3, appropriate affect, intact judgment & insight - Additional findings Additional findings: Breast Exam: BRA: 38 C Inspection: Bilateral grade 2 ptosis Palpation: Right breast: Multi positional exam fibrocystic changes, no masses palpable on today's examination Right axilla: No discrete adenopathy of concern Left breast: Multi positional exam fibrocystic changes no dominant masses or nodules of concern Left axilla: No adenopathy of concern Assessment and Plan Assessment: Impression: Radiographic abnormality right breast/ biopsy proven invasive ductal cancer Palpable abnormality right breast corresponding to radiographic abnormality is no longer palpable presented at tumor board/02-23-24 recommend neoadjuvant chemotherapy being given Plan: genetic testing results to be obtained medical oncology follow up ready for surgery in September follow up in July 2024 or sooner any concerns CC: Dr. Jeffers
== END ==
LOC: WWCWWP 10:41
PROVIDERS: ATTEND Surgery
DX: C50.211 Malignant neoplasm of upper-inner quadrant of right female breast (principal); F17.210 Nicotine dependence, cigarettes, uncomplicated; Z80.3 Family history of malignant neoplasm of breast; Z17.1 Estrogen receptor negative status [ER-]

== ENCOUNTER → 2024-07-22 | Outpatient (CLI) | payer BC ==
--- NOTE | 2024-07-22 10:08 | P.PN ---
Subjective Progress Note Date: 07/22/24 Principal diagnosis: [id number]; stage IIB, right breast 07-22-24 Principal diagnosis: [id number]; stage IIB, right breast abnormal right breast mammogram History of present illness: Andreina is a 53 year old female who had a bilateral mammogram on 02-03-24. This led to a right breast ultrasound. This showed a 2.6 by 3 cm lesion in the UIQ of the right breast as well as an enlarged node with the cortex 0.4 cm. The patient did not have anything of concern in the left breast. The radiographs were personally reviewed with Dr. Bolden. The patient states her boyfriend found a lump in her right breast the end of December,. She does not complain of any pain in her breast. The patient states that since it was brought to her attention she can feel it and it feels like it has gotten slightly larger. She is not complaining of any nipple discharge or skin changes. She has not had any recent trauma or infection in her breast. She is never had any surgery on her breast. core biopsy on 02-04-24 [id number]; stage IIB Ultrasound-guided core biopsy right axilla enlarged lymph node (-) case presented at tumor board on 02-23-24 recommend neoadjuvant chemotherapy note radiation oncology 04-05-24 reviewed, patient on [id number] initiated, will require radiation therapy most likely after surgery She completed 12 cycles of carboplatin/taxol/keytruda in June 2024 She started part 2 of chemptherapy on June 30 which was adriamycin/cytoxin/keytruda/ neulasta day after chemotherapy; 4 cycles every 21 days has completed two cycles She just started her third cycle of chemotherapy May 2024, she was hospitalized for 6 days with a sinus infection in May 2024 (carboplatin, taxol, keytruda first 12 weeks, once a week; second 12 weeks two different but she does not know what they are yet or duration or frequency) The lump in her breast has resolved as per the patient. A PET scan was done 03-11-24 + lymph nodes, _ node on biopsy felt to be sampling error; 3.2 cm breat mass genetic testing done results pending (she was told results were negative) need report She felt a lump in her right breast earlier this week. It has not changed since she felt it. Caffeine: 1 cup/day nicotine: 1/2 PPD for 32 years, stopped July 2021 chocolate: weekly BCP: for about 2 years in [place] past hormones: none Family History: maternal aunt: breast cancer Hormonal History: menarche: 12 , breast fed: no, age at first : 19 menopause: Uterine ablation approximately 2009 Hormones: Negative Surgical history: right foot back surgery right carpel tunnel port placed for chemotherapy Medical History: adderol for focus Social History: Nicotine: As above Alcohol: Several times a week Drugs: Negative Review of Systems - Constitutional Reports sweats - EENT Eyes: denies blurred vision Ears: bilateral: tinnitus Ears, nose, mouth and throat: Denies dysphagia - Breasts bilateral: as per HPI - Cardiovascular Denies chest pain, Denies shortness of breath - Respiratory Denies cough - Gastrointestinal Reports as per HPI - Genitourinary Genitourinary: Denies dysuria, Denies hematuria Menstruation: Reports postmenopausal - Musculoskeletal Reports myalgias - Integumentary Denies rash, Denies unusual bruising - Neurological Denies headaches, Denies syncope - Psychiatric Reports as per HPI - Endocrine Reports as per HPI - Hematologic/Lymphatic Reports as per HPI - Allergic/Immunologic Reports as per HPI Past Medical History Past Medical History: Chest Pain / Angina, Osteoarthritis (OA) Additional Past Medical History / Comment(s): SQUAMOUS CELL SKIN CANCER, occ palpitations, History of Any Multi-Drug Resistant Organisms: None Reported Past Surgical History: Back Surgery, Tubal Ligation, Uterine Ablation Additional Past Surgical History / Comment(s): laminectomy, skin cancer removed from chest and leg, colonoscopy Past Anesthesia/Blood Transfusion Reactions: No Reported Reaction, Unable to Obtain Additional Past Anesthesia/Blood Transfusion Reaction / Comm: no family hx Smoking Status: Current every day smoker - Past Family History Mother Family Medical History: Unable to Obtain Medications and Allergies Home Medications Medication Instructions Recorded Confirmed Type Multivitamins, Thera [Multivitamin 1 tab PO DAILY 09/05/19 04/05/21 History (formulary)] Dextroamphetamine/Amphetamine 20 mg PO QAM 04/03/21 04/05/21 History [Adderall Xr] Ibuprofen [Motrin] 800 mg PO Q8H PRN 04/03/21 04/05/21 History HYDROcodone/APAP 5-325MG [[place] 1 tab PO Q6HR PRN 7 Days #30 tab 04/05/21 Rx 5-325] Allergies Allergy/AdvReac Type Severity Reaction Status Date / Time No Known Allergies Allergy Verified 04/05/21 11:36 Objective - Constitutional General appearance: Present: cooperative - EENT Eyes: Present: EOMI ENT: Present: hearing grossly normal - Neck Neck: Present: normal ROM - Respiratory Respiratory: bilateral: CTA - Cardiovascular Rhythm: regular Heart sounds: normal: S1, S2 - Integumentary Integumentary: Present: normal turgor - Musculoskeletal Musculoskeletal: Present: gait normal - Psychiatric Psychiatric: Present: A&O x's 3, appropriate affect, intact judgment & insight - Additional findings Additional findings: Breast Exam: BRA: 38 C Inspection: Bilateral grade 2 ptosis Palpation: Right breast: Multi positional exam fibrocystic changes, fullness right breast inferior aerola brought to my attention by patient she is not sure if it is a change Right axilla: No discrete adenopathy of concern Left breast: Multi positional exam fibrocystic changes no dominant masses or nodules of concern Left axilla: No adenopathy of concern Assessment and Plan Assessment: Impression: Radiographic abnormality right breast/ biopsy proven invasive ductal cancer Palpable abnormality right breast corresponding to radiographic abnormality is no longer palpable but new lwsion 6 oclock perioaerolar area presented at tumor board/02-23-24 recommend neoadjuvant chemotherapy being given Plan: genetic testing results to be obtained verbally (-) medical oncology follow up ready for surgery in September ultrasound to evaluate the lesion at 6 oclock right periaerolar area follow up after ultrasound CC: Dr. Jeffers
[2024-07-22 10:16] VITALS: BP 130/79; PULSE 101; RESP 16; TEMP 98.3
--- NOTE | 2024-07-22 10:42 | USB ---
Reason for Exam: Clinical finding. Patient History: Menarche at age 13. First Full-Term at age 19. Postmenopausal. Breast cancer, right, age 53. 02/04/2024, US breast needle core addl RT on the Right side. 02/04/2024, Malignant US biopsy breast VAD RT on the right side. 09/05/2019, Benign Core Biopsy on the left side. Technique: Method: Targeted. Prior Study Comparison: 03/02/2023 Bilateral MG 3D screening mammo w/cad, [facility]. 02/03/2024 Bilateral MG 3D diag mammo wo cad TAD, [facility]. 02/04/2024 Right MG diagnostic mammo RT wo CAD, [facility]. Findings: The lower section of the breast of the right breast and the retroareolar of the right breast were scanned. No solid or cystic masses are identified.. There are some vaguely prominent ducts in the subareolar breast 6:00 position palpable region. No discrete abnormality account for the palpable abnormality is identified. Management recommended. Overall Assessment: Benign, BI-RAD 2 Electronically signed and approved by: Shayne Gross D.O. Radiologis
== END ==
LOC: WWCWWP 08:47
PROVIDERS: ATTEND Surgery
DX: R92.8 Other abnormal and inconclusive findings on diagnostic imaging of breast (principal); C50.811 Malignant neoplasm of overlapping sites of right female breast; N63.12 Unspecified lump in the right breast, upper inner quadrant; F17.210 Nicotine dependence, cigarettes, uncomplicated; Z17.1 Estrogen receptor negative status [ER-]; Z17.22 Progesterone receptor negative status; Z80.3 Family history of malignant neoplasm of breast

== ENCOUNTER → 2024-09-15 | Outpatient (CLI) | payer BC ==
[2024-09-15 10:16] VITALS: BP 136/91; PULSE 107; RESP 17; TEMP 98.4
--- NOTE | 2024-09-15 11:05 | P.PN ---
Subjective Progress Note Date: 09/15/24 Principal diagnosis: right breast [id number], Dx. 02-04-24 Subjective Progress Note Date: 09-15-24 Principal diagnosis: [id number]; stage IIB, right breast 09-15-24 Principal diagnosis: [id number]; stage IIB, right breast abnormal right breast mammogram History of present illness: Andreina is a 53 year old female who had a bilateral mammogram on 02-03-24. This led to a right breast ultrasound. This showed a 2.6 by 3 cm lesion in the UIQ of the right breast as well as an enlarged node with the cortex 0.4 cm. The patient did not have anything of concern in the left breast. The radiographs were personally reviewed with Dr. Bolden. The patient states her boyfriend found a lump in her right breast the end of December,. She does not complain of any pain in her breast. The patient states that since it was brought to her attention she can feel it and it felt like it had gotten slightly larger. She was not complaining of any nipple discharge or skin changes. She had not had any recent trauma or infection in her breast. She had never had any surgery on her breast. core biopsy on 02-04-24 [id number]; stage IIB Ultrasound-guided core biopsy right axilla enlarged lymph node (-) case presented at tumor board on 02-23-24 recommend neoadjuvant chemotherapy note radiation oncology 04-05-24 reviewed, patient on [id number] initiated, will require radiation therapy most likely after surgery She completed 12 cycles of carboplatin/taxol/keytruda in June 2024 She started part 2 of chemptherapy on June 30 which was adriamycin/cytoxin/keytruda/ neulasta day after chemotherapy; 4 cycles every 21 days has completed two cycles She just started her third cycle of chemotherapy May 2024, she was hospitalized for 6 days with a sinus infection in May 2024 (carboplatin, taxol, keytruda first 12 weeks, once a week; second 12 weeks two different but she does not know what they are yet or duration or frequency) The initial lump in her breast has resolved as per the patient. A PET scan was done 03-11-24 + lymph nodes, (-)node on biopsy felt to be sampling error; 3.2 cm breast mass genetic testing done results pending (she was told results were negative) need report Patient seen on 07-22-24 with the concern of a new lump in her right breast. Ultrasound done and reviewed with radiology EMELI 2. She felt a lump in her right breast earlier this week. It has not changed since she felt it. Completed her chemotherpay last week, and scheduled an MRI for ; Dr. Josh Virk medical oncologist Caffeine: 1 cup/day nicotine: 1/2 PPD for 32 years, stopped July 2021 chocolate: weekly BCP: [place] about [place] years in [place] past hormones: none Family History: maternal aunt: breast cancer Hormonal History: menarche: 12 , breast fed: no, age at first : 19 menopause: Uterine ablation approximately 2009 Hormones: Negative Surgical history: right foot back surgery right carpel tunnel port placed for chemotherapy Medical History: adderol for focus Social History: Nicotine: As above Alcohol: Several times a week Drugs: Negative Review of Systems - Constitutional Reports sweats - EENT Eyes: denies blurred vision Ears: bilateral: tinnitus Ears, nose, mouth and throat: Denies dysphagia - Breasts bilateral: as per HPI - Cardiovascular Denies chest pain, Denies shortness of breath - Respiratory Denies cough - Gastrointestinal Reports as per HPI - Genitourinary Genitourinary: Denies dysuria, Denies hematuria Menstruation: Reports postmenopausal - Musculoskeletal Reports myalgias - Integumentary Denies rash, Denies unusual bruising - Neurological Denies headaches, Denies syncope - Psychiatric Reports as per HPI - Endocrine Reports as per HPI - Hematologic/Lymphatic Reports as per HPI - Allergic/Immunologic Reports as per HPI Past Medical History Past Medical History: Chest Pain / Angina, Osteoarthritis (OA) Additional Past Medical History / Comment(s): SQUAMOUS CELL SKIN CANCER, occ palpitations, History of Any Multi-Drug Resistant Organisms: None Reported Past Surgical History: Back Surgery, Tubal Ligation, Uterine Ablation Additional Past Surgical History / Comment(s): laminectomy, skin cancer removed from chest and leg, colonoscopy Past Anesthesia/Blood Transfusion Reactions: No Reported Reaction, Unable to Obtain Additional Past Anesthesia/Blood Transfusion Reaction / Comm: no family hx Smoking Status: Current every day smoker - Past Family History Mother Family Medical History: Unable to Obtain Medications and Allergies Home Medications Medication Instructions Recorded Confirmed Type Multivitamins, Thera [Multivitamin 1 tab PO DAILY 09/05/19 04/05/21 History (formulary)] Dextroamphetamine/Amphetamine 20 mg PO QAM 04/03/21 04/05/21 History [Adderall Xr] Ibuprofen [Motrin] 800 mg PO Q8H PRN 04/03/21 04/05/21 History HYDROcodone/APAP 5-325MG [[place] 1 tab PO Q6HR PRN 7 Days #30 tab 04/05/21 Rx 5-325] Allergies Allergy/AdvReac Type Severity Reaction Status Date / Time No Known Allergies Allergy Verified 04/05/21 11:36 Objective - Vital Signs Vital signs: Vital Signs Temp 98.4 F 09/15/24 10:13 Pulse 107 H 09/15/24 10:13 Resp 17 09/15/24 10:13 BP 136/91 09/15/24 10:13 Pulse Ox 97 09/15/24 10:13 FiO2 Intake & Output 09/14/24 09/15/24 09/15/24 18:59 06:59 18:59 Weight 103.873 kg - Constitutional General appearance: Present: cooperative - EENT Eyes: Present: EOMI ENT: Present: hearing grossly normal - Neck Neck: Present: normal ROM - Respiratory Respiratory: bilateral: CTA - Cardiovascular Rhythm: regular Heart sounds: normal: S1, S2 - Integumentary Integumentary: Present: normal turgor - Musculoskeletal Musculoskeletal: Present: gait normal - Psychiatric Psychiatric: Present: A&O x's 3, appropriate affect, intact judgment & insight - Additional findings Additional findings: Breast Exam: BRA: 38 C Inspection: Bilateral grade 2 ptosis Palpation: Right breast: Multi positional exam fibrocystic changes, fullness right breast inferior areola brought to my attention on last visit is no longer present Right axilla: No discrete adenopathy of concern Left breast: Multi positional exam fibrocystic changes no dominant masses or nodules of concern Left axilla: No adenopathy of concern Assessment and Plan Assessment: Impression: Radiographic abnormality right breast/ biopsy proven invasive ductal cancer Palpable abnormality right breast corresponding to radiographic abnormality is no longer palpable but new lwsion 6 oclock perioaerolar area presented at tumor board/02-23-24 recommend neoadjuvant chemotherapy being given Plan: genetic testing results to be obtained verbally (-) medical oncology follow up schedule for right, right breast needle localization lumpectomy via a right breast mastopexy incision, right breast oncoplastic tissue transfer, right sentinel node injection, right sentinel node biopsy, possible right axillary node dissection ultrasound to evaluate the lesion at 6 oclock right periaerolar area ( done on 08-11-24 BIRAD 2) Dr. Jeffers medical clearance follow up after MRI discuss clearance for surgery from Dr. Virk, she will see him Sep 29 Risk and benefits of the procedure discussed with the patient. Risk include but are not limited to bleeding, infection, reaction to the anesthetic. If the margins were to be positive then further tissue would need to be removed. Risk of the sentinel node biopsy is decreased sensation to the inner arm, possible injury to the thoracodorsal or long thoracic nerves which could result in winged scapula. Risk of lymphedema. She understands and wishes to proceed. CC: Dr. Jeffers
== END ==
LOC: WWCWWP 09:23
PROVIDERS: ATTEND Surgery
DX: C50.211 Malignant neoplasm of upper-inner quadrant of right female breast (principal); F17.200 Nicotine dependence, unspecified, uncomplicated; Z80.3 Family history of malignant neoplasm of breast; Z17.22 Progesterone receptor negative status

== ENCOUNTER → 2024-09-23 | Outpatient (CLI) | payer BC ==
--- NOTE | 2024-09-23 14:43 | BMR ---
EXAM DATE: 09/23/2024 EXAM DESCRIPTION: MRI-Breast Bilat (W/WO Contrast) INDICATION: Right breast carcinoma on neoadjuvant chemotherapy. COMPARISON: Prior breast MRI dated 03/02/2024 in PET-CT dated 03/11/2024 CONTRAST: 6.0 cc Gadavist contrast material. TECHNIQUE: Multi sequence multiplanar MR imaging of the breasts was obtained. Subsequently, after the uneventful intravenous administration of Gadavist contrast material, 6 dynamic sequences were then obtained. Post processing was performed utilizing a [employer] CAD workstation. FINDINGS: The breasts are composed of scattered fibroglandular tissue. There is mild background parenchymal enhancement identified. No axillary or internal mammary lymphadenopathy. No focal skin thickening or nipple retraction. The bone marrow signal intensity is unremarkable. The bone marrow signal intensity is unremarkable. T2 weighted images demonstrated no dominant cystic lesion in either breast. Post contrast images demonstrated interval resolution of previously described irregular enhancing mass at right 2 o'clock position 7 cm posterior to the nipple around the signal void (503 image 466). Previously described contiguous linear non mass enhancement in the right breast extending anteromedially to a satellite nodule has also been resolved since prior examination consistent with treatment response. There is no abnormal enhancement in the left breast to suggest malignancy. There is no abnormal signal or enhancement in the chest wall or subcutaneous tissue. IMPRESSION: 1. Interval resolution of previously described irregular enhancing mass at right 2 o'clock position 7 cm posterior to the nipple since prior examination. Linear non mass enhancement extending anteriorly and medially to a satellite nodule has also been resolved consistent with favorable response to neoadjuvant chemotherapy. 2. No axillary or internal mammary lymphadenopathy. 3. No MR evidence of malignancy in the left breast. Final assessment: BI-RADS category 6: Known malignancy: Appropriate management is recommended. MTDD
== END | disposition home or self-care (01) ==
LOC: RADMRIMAIN 08:19
PROVIDERS: ATTEND Internal Medicine Hematology & Oncology
DX: C50.211 Malignant neoplasm of upper-inner quadrant of right female breast (principal)
CPT/HCPCS: 77049; A9585

== ENCOUNTER → 2024-10-14 | Outpatient (CLI) | payer BC ==
[2024-10-14 10:30] VITALS: BP 156/95; PULSE 101; RESP 16; TEMP 98.2
--- NOTE | 2024-10-14 10:45 | P.PN ---
Subjective Progress Note Date: 10/14/24 Principal diagnosis: Subjective Progress Note Date: 10-14-24 Principal diagnosis: right breast [id number], Dx. 02-04-24 Principal diagnosis: [id number]; stage IIB, right breast History of present illness: Andreina is a 54 year old female who had a bilateral mammogram on 02-03-24. This led to a right breast ultrasound. This showed a 2.6 by 3 cm lesion in the UIQ of the right breast as well as an enlarged node with the cortex 0.4 cm. The patient did not have anything of concern in the left breast. The radiographs were personally reviewed with Dr. Bolden. The patient states her boyfriend found a lump in her right breast the end of December,. She does not complain of any pain in her breast. The patient states that since it was brought to her attention she can feel it and it felt like it had gotten slightly larger. She was not complaining of any nipple discharge or skin changes. She had not had any recent trauma or infection in her breast. She had never had any surgery on her breast. core biopsy on 02-04-24 [id number]; stage IIB Ultrasound-guided core biopsy right axilla enlarged lymph node (-) case presented at tumor board on 02-23-24 recommend neoadjuvant chemotherapy note radiation oncology 04-05-24 reviewed, patient on [id number] initiated, will require radiation therapy most likely after surgery She completed 12 cycles of carboplatin/taxol/keytruda in June 2024 She started part 2 of chemptherapy on June 30 which was adriamycin/cytoxin/keytruda/ neulasta day after chemotherapy; 4 cycles every 21 days has completed two cycles The initial lump in her breast has resolved as per the patient. A PET scan was done 03-11-24 + lymph nodes, (-)node on biopsy felt to be sampling error; 3.2 cm breast mass genetic testing done negative Patient seen on 07-22-24 with the concern of a new lump in her right breast. Ultrasound done and reviewed with radiology BIRAD 2. She felt a lump in her right breast earlier this week. It has not changed since she felt it. Completed her chemotherpay , and scheduled an MRI for ; Dr. Josh Virk medical oncologist; MRI plan 09 23 24 MRI reveals resolution of previously described irregular enhancing mass in the right breast at 2:00 and non-mass enhancement in the right breast extending anterior medially to a satellite nodule had also resolved Left breast no lesions of concern No evidence of any axillary or internal mammary lymphadenopathy Caffeine: 1 cup/day nicotine: 1/2 PPD for 32 years, stopped July 2021 chocolate: weekly BCP: for about 2 years in remote past hormones: none Family History: maternal aunt: breast cancer Hormonal History: menarche: 12 , breast fed: no, age at first : 19 menopause: Uterine ablation approximately 2009 Hormones: Negative Surgical history: right foot back surgery right carpel tunnel port placed for chemotherapy Medical History: adderol for focus Social History: Nicotine: As above Alcohol: Several times a week Drugs: Negative Review of Systems - Constitutional Reports sweats - EENT Eyes: denies blurred vision Ears: bilateral: tinnitus Ears, nose, mouth and throat: Denies dysphagia - Breasts bilateral: as per HPI - Cardiovascular Denies chest pain, Denies shortness of breath - Respiratory Denies cough - Gastrointestinal Reports as per HPI - Genitourinary Genitourinary: Denies dysuria, Denies hematuria Menstruation: Reports postmenopausal - Musculoskeletal Reports myalgias - Integumentary Denies rash, Denies unusual bruising - Neurological Denies headaches, Denies syncope - Psychiatric Reports as per HPI - Endocrine Reports as per HPI - Hematologic/Lymphatic Reports as per HPI - Allergic/Immunologic Reports as per HPI Past Medical History Past Medical History: Chest Pain / Angina, Osteoarthritis (OA) Additional Past Medical History / Comment(s): SQUAMOUS CELL SKIN CANCER, occ palpitations, History of Any Multi-Drug Resistant Organisms: None Reported Past Surgical History: Back Surgery, Tubal Ligation, Uterine Ablation Additional Past Surgical History / Comment(s): laminectomy, skin cancer removed from chest and leg, colonoscopy Past Anesthesia/Blood Transfusion Reactions: No Reported Reaction, Unable to Obtain Additional Past Anesthesia/Blood Transfusion Reaction / Comm: no family hx Smoking Status: Current every day smoker - Past Family History Mother Family Medical History: Unable to Obtain Medications and Allergies Home Medications Medication Instructions Recorded Confirmed Type Multivitamins, Thera [Multivitamin 1 tab PO DAILY 09/05/19 04/05/21 History (formulary)] Dextroamphetamine/Amphetamine 20 mg PO QAM 04/03/21 04/05/21 History [Adderall Xr] Ibuprofen [Motrin] 800 mg PO Q8H PRN 04/03/21 04/05/21 History HYDROcodone/APAP 5-325MG [[place] 1 tab PO Q6HR PRN 7 Days #30 tab 04/05/21 Rx 5-325] Allergies Allergy/AdvReac Type Severity Reaction Status Date / Time No Known Allergies Allergy Verified 04/05/21 11:36 Objective - Vital Signs Vital signs: Intake & Output 10/13/24 10/14/24 10/14/24 18:59 06:59 18:59 Weight 106.594 kg - Constitutional General appearance: Present: cooperative - EENT Eyes: Present: EOMI - Neck Neck: Present: normal ROM - Respiratory Respiratory: bilateral: CTA - Cardiovascular Rhythm: regular Heart sounds: normal: S1, S2 - Integumentary Integumentary: Present: normal turgor - Musculoskeletal Musculoskeletal: Present: gait normal - Psychiatric Psychiatric: Present: A&O x's 3, appropriate affect, intact judgment & insight - Additional findings Additional findings: Breast Exam: BRA: 38 C Inspection: Bilateral grade 2 ptosis Palpation: Right breast: Multi positional exam fibrocystic changes, no dominant masses or nodules of concern Right axilla: No discrete adenopathy of concern Left breast: Multi positional exam fibrocystic changes no dominant masses or nodules of concern Left axilla: No adenopathy of concern Assessment and Plan Assessment: Impression: Radiographic abnormality right breast/ biopsy proven invasive ductal cancer Palpable abnormality right breast corresponding to radiographic abnormality is no longer palpable Completed neoadjuvant chemotherapy September 08 Genetic testing negative MRI 09 23 24: Of previously described irregular enhancing mass of right breast 2:00, no lesions of concern in the left breast No axillary or internal mammary lymphadenopathy of concern Plan: schedule for right, right breast needle localization lumpectomy via a right breast mastopexy incision, right breast oncoplastic tissue transfer, right sentinel node injection, right sentinel node biopsy, possible right axillary node dissection, patient of prior right axillary node which was biopsied with resection of this node as well ultrasound to evaluate the lesion at 6 oclock right periaerolar area ( done on 08-11-24 BIRAD 2) Dr. Jeffers medical clearance discuss clearance for surgery from Dr. Virk, she will see him Sep 29, Risk and benefits of the procedure discussed with the patient. Risk include but are not limited to bleeding, infection, reaction to the anesthetic. If the margins were to be positive then further tissue would need to be removed. Risk of the sentinel node biopsy is decreased sensation to the inner arm, possible injury to the thoracodorsal or long thoracic nerves which could result in winged scapula. Risk of lymphedema. She understands and wishes to proceed. Time spent 25 minutes CC: Dr. Jeffers
== END ==
LOC: WWCWWP 10:09
PROVIDERS: ATTEND Surgery
DX: C50.911 Malignant neoplasm of unspecified site of right female breast (principal); R92.8 Other abnormal and inconclusive findings on diagnostic imaging of breast; F17.210 Nicotine dependence, cigarettes, uncomplicated; N63.12 Unspecified lump in the right breast, upper inner quadrant; Z80.3 Family history of malignant neoplasm of breast; Z90.11 Acquired absence of right breast and nipple

== ENCOUNTER → 2025-02-17 | Outpatient (CLI) | payer BC ==
[2025-02-17 10:23] VITALS: BP 138/86; PULSE 101; RESP 16; TEMP 97.9
--- NOTE | 2025-02-17 10:57 | P.PN ---
Subjective Progress Note Date: 02/17/25 Principal diagnosis: right breast [id number], Dx. 02-04-24 Subjective Progress Note Date: 02-17-25 Principal diagnosis: [id number]; stage IIB, right breast History of present illness: Andreina is a 54 year old female who had a bilateral mammogram on 02-03-24. This led to a right breast ultrasound. This showed a 2.6 by 3 cm lesion in the UIQ of the right breast as well as an enlarged node with the cortex 0.4 cm. The patient did not have anything of concern in the left breast. The radiographs were personally reviewed with Dr. Bolden. The patient states her boyfriend found a lump in her right breast the end of December,. She does not complain of any pain in her breast. The patient states that since it was brought to her attention she can feel it and it felt like it had gotten slightly larger. She was not complaining of any nipple discharge or skin changes. She had not had any recent trauma or infection in her breast. She had never had any surgery on her breast. core biopsy on 02-04-24 [id number]; stage IIB Ultrasound-guided core biopsy right axilla enlarged lymph node (-) case presented at tumor board on 02-23-24 recommend neoadjuvant chemotherapy note radiation oncology 04-05-24 reviewed, patient on [id number] initiated, will require radiation therapy most likely after surgery She completed 12 cycles of carboplatin/taxol/keytruda in June 2024 She started part 2 of chemptherapy on June 30 which was adriamycin/cytoxin/keytruda/ neulasta day after chemotherapy; 4 cycles every 21 days has completed two cycles The initial lump in her breast has resolved as per the patient. A PET scan was done 03-11-24 + lymph nodes, (-)node on biopsy felt to be sampling error; 3.2 cm breast mass genetic testing done negative Patient seen on 07-22-24 with the concern of a new lump in her right breast. Ultrasound done and reviewed with radiology BIRAD 2. Completed her chemotherpay , and scheduled had an MRI for 2024 MRI reveals resolution of previously described irregular enhancing mass in the right breast at 2:00 and non-mass enhancement in the right breast extending anterior medially to a satellite nodule had also resolved Left breast no lesions of concern No evidence of any axillary or internal mammary lymphadenopathy The patient on 10-25-2024 underwent a right breast lumpectomy and sentinel node biopsy. The patient had received neoadjuvant treatment and there was no residual cancer in the breast, 8 nodes were removed and all were negative. medical oncology note 01-19-25 reviewed continue Keytruda given IV through March 2025, one more treatment left port removed as they were having trouble accessing it The patient is concerned regarding asymmetry of the breast with the right nipple areolar complex higher than the left. This causes her to be self-conscious and it is difficult for her to find close to fit well. Caffeine: 1 cup/day nicotine: 1/2 PPD for 32 years, stopped July 2021 chocolate: weekly BCP: for about 2 years in remote past hormones: none Family History: maternal aunt: breast cancer Hormonal History: menarche: 12 , breast fed: no, age at first : 19 menopause: Uterine ablation approximately 2009 Hormones: Negative Surgical history: right foot back surgery right carpel tunnel port placed for chemotherapy port removed Medical History: adderol for focus Social History: Nicotine: As above Alcohol: Several times a week Drugs: Negative Review of Systems - Constitutional Reports sweats - EENT Eyes: denies blurred vision Ears: bilateral: tinnitus Ears, nose, mouth and throat: Denies dysphagia - Breasts bilateral: as per HPI - Cardiovascular Denies chest pain, Denies shortness of breath - Respiratory Denies cough - Gastrointestinal Reports as per HPI - Genitourinary Genitourinary: Denies dysuria, Denies hematuria Menstruation: Reports postmenopausal - Musculoskeletal Reports myalgias - Integumentary Denies rash, Denies unusual bruising - Neurological Denies headaches, Denies syncope - Psychiatric Reports as per HPI - Endocrine Reports as per HPI - Hematologic/Lymphatic Reports as per HPI - Allergic/Immunologic Reports as per HPI Past Medical History Past Medical History: Chest Pain / Angina, Osteoarthritis (OA) Additional Past Medical History / Comment(s): SQUAMOUS CELL SKIN CANCER, occ palpitations, History of Any Multi-Drug Resistant Organisms: None Reported Past Surgical History: Back Surgery, Tubal Ligation, Uterine Ablation Additional Past Surgical History / Comment(s): laminectomy, skin cancer removed from chest and leg, colonoscopy Past Anesthesia/Blood Transfusion Reactions: No Reported Reaction, Unable to Obtain Additional Past Anesthesia/Blood Transfusion Reaction / Comm: no family hx Smoking Status: Current every day smoker - Past Family History Mother Family Medical History: Unable to Obtain Medications and Allergies Home Medications Medication Instructions Recorded Confirmed Type Multivitamins, Thera [Multivitamin 1 tab PO DAILY 09/05/19 04/05/21 History (formulary)] Dextroamphetamine/Amphetamine 20 mg PO QAM 04/03/21 04/05/21 History [Adderall Xr] Ibuprofen [Motrin] 800 mg PO Q8H PRN 04/03/21 04/05/21 History HYDROcodone/APAP 5-325MG [[place] 1 tab PO Q6HR PRN 7 Days #30 tab 04/05/21 Rx 5-325] Allergies Allergy/AdvReac Type Severity Reaction Status Date / Time No Known Allergies Allergy Verified 04/05/21 11:36 Objective - Constitutional General appearance: Present: cooperative - EENT Eyes: Present: EOMI ENT: Present: hearing grossly normal - Neck Neck: Present: normal ROM - Respiratory Respiratory: bilateral: CTA - Cardiovascular Rhythm: regular Heart sounds: normal: S1, S2 - Integumentary Integumentary: Present: normal turgor - Musculoskeletal Musculoskeletal: Present: gait normal - Psychiatric Psychiatric: Present: A&O x's 3, appropriate affect, intact judgment & insight - Additional findings Additional findings: Breast Exam: BRA: 38 C Inspection: Bilateral grade 2 ptosis, asymmetry of the nipple areolar complex with the right nipple areolar complex approximately 3 cm higher than the left Palpation: Right breast: Multi positional exam fibrocystic changes, no dominant masses or nodules of concern post op surgical and radiation changes Right axilla: No discrete adenopathy of concern Left breast: Multi positional exam fibrocystic changes no dominant masses or nodules of concern Left axilla: No adenopathy of concern Assessment and Plan Assessment: Impression: [id number]; stage IIB Patient is status post right breast lumpectomy/radiation therapy/chemotherapy/is presently completing Keytruda Adderall for focus Patient is concerned regarding asymmetry between the right and left nipple areolar complex Plan: Left breast mastopexy bilateral mammogram in March 2025 with appointment Patient understands risks and benefits and wishes to proceed. Risk include but are not limited to bleeding, infection, reaction to the anesthetic. She understands the breast will not be exactly symmetric but will be more symmetric than they are now. She is given the option of seeing a plastic surgeon and declined. CC: Dr. Jeffers
== END ==
LOC: WWCWWP 10:15
PROVIDERS: ATTEND Surgery
DX: Z98.890 Other specified postprocedural states (principal); F17.210 Nicotine dependence, cigarettes, uncomplicated; Z17.32 Human epidermal growth factor receptor 2 negative status; Z17.22 Progesterone receptor negative status

== ENCOUNTER → 2025-04-14 | Outpatient (CLI) | payer BC ==
[2025-04-14 09:43] VITALS: BP 135/89; PULSE 100; RESP 17; TEMP 98
--- NOTE | 2025-04-14 10:20 | P.PN ---
Subjective Progress Note Date: 04/14/25 Principal diagnosis: right breast cancer IIB/IIIB [id number] dx. 04-05-24 following neoadjuvant chemotherapy partial mastectomy [id number] 02/17/25 Principal diagnosis: right breast [id number], Dx. 02-04-24 Subjective Progress Note Date: 04-14-25 Principal diagnosis: [id number]; stage IIB, right breast History of present illness: 02-17-25 Andreina is a 54 year old female who had a bilateral mammogram on 02-03-24. This led to a right breast ultrasound. This showed a 2.6 by 3 cm lesion in the UIQ of the right breast as well as an enlarged node with the cortex 0.4 cm. The patient did not have anything of concern in the left breast. The radiographs were personally reviewed with Dr. Bolden. The patient states her boyfriend found a lump in her right breast the end of December,. She does not complain of any pain in her breast. The patient states that since it was brought to her attention she can feel it and it felt like it had gotten slightly larger. She was not complaining of any nipple discharge or skin changes. She had not had any recent trauma or infection in her breast. She had never had any surgery on her breast. core biopsy on 02-04-24 [id number]; stage IIB Ultrasound-guided core biopsy right axilla enlarged lymph node (-) case presented at tumor board on 02-23-24 recommend neoadjuvant chemotherapy note radiation oncology 04-05-24 reviewed, patient on [id number] initiated, will require radiation therapy most likely after surgery She completed 12 cycles of carboplatin/taxol/keytruda in June 2024 She started part 2 of chemptherapy on June 30 which was adriamycin/cytoxin/keytruda/ neulasta day after chemotherapy; 4 cycles every 21 days has completed two cycles The initial lump in her breast has resolved as per the patient. A PET scan was done 03-11-24 + lymph nodes, (-)node on biopsy felt to be sampling error; 3.2 cm breast mass genetic testing done negative Patient seen on 07-22-24 with the concern of a new lump in her right breast. Ultrasound done and reviewed with radiology EMELI 2. Completed her chemotherpay , and scheduled had an MRI for 2024 MRI reveals resolution of previously described irregular enhancing mass in the right breast at 2:00 and non-mass enhancement in the right breast extending anterior medially to a satellite nodule had also resolved Left breast no lesions of concern No evidence of any axillary or internal mammary lymphadenopathy The patient on 10-25-2024 underwent a right breast lumpectomy and sentinel node biopsy. The patient had received neoadjuvant treatment and there was no residual cancer in the breast, 8 nodes were removed and all were negative. medical oncology note 01-19-25 reviewed continue Keytruda given IV through March 2025, one more treatment left port removed as they were having trouble accessing it The patient is concerned regarding asymmetry of the breast with the right nipple areolar complex higher than the left. This causes her to be self-conscious and it is difficult for her to find close to fit well. 04-14-25 right breast cancer IIB/IIIB [id number] following neoadjuvant chemotherapy partial mastectomy [id number] 54 year old status post right breast lumpectomy and sentinel node biopsy on 10-25-2024. She received neoadjuvant chemotherapy and there was no residual cancer in the breast, 8 nodes were removed and all were negative. Note medical oncology 04-11-2025 reviewed completed adjuvant Keytruda protocol; Note reviewed radiation oncology 02 21 25 completed radiation therapy on 01 20 25 with a cavity boost to 6000 cGy Posttreatment mammogram is due in 3 months from completing radiation therapy. Caffeine: 1 cup/day nicotine: 1/2 PPD for 32 years, stopped July 2021 chocolate: weekly BCP: for about 2 years in remote past hormones: none Family History: maternal aunt: breast cancer Hormonal History: menarche: 12 , breast fed: no, age at first : 19 menopause: Uterine ablation approximately 2009 Hormones: Negative Surgical history: right foot back surgery right carpel tunnel port placed for chemotherapy port removed Medical History: adderol for focus Social History: Nicotine: As above Alcohol: Several times a week Drugs: Negative Review of Systems - Constitutional Reports sweats - EENT Eyes: denies blurred vision Ears: bilateral: tinnitus Ears, nose, mouth and throat: Denies dysphagia - Breasts bilateral: as per HPI - Cardiovascular Denies chest pain, Denies shortness of breath - Respiratory Denies cough - Gastrointestinal Reports as per HPI - Genitourinary Genitourinary: Denies dysuria, Denies hematuria Menstruation: Reports postmenopausal - Musculoskeletal Reports myalgias - Integumentary Denies rash, Denies unusual bruising - Neurological Denies headaches, Denies syncope - Psychiatric Reports as per HPI - Endocrine Reports as per HPI - Hematologic/Lymphatic Reports as per HPI - Allergic/Immunologic Reports as per HPI Past Medical History Past Medical History: Chest Pain / Angina, Osteoarthritis (OA) Additional Past Medical History / Comment(s): SQUAMOUS CELL SKIN CANCER, occ palpitations, History of Any Multi-Drug Resistant Organisms: None Reported Past Surgical History: Back Surgery, Tubal Ligation, Uterine Ablation Additional Past Surgical History / Comment(s): laminectomy, skin cancer removed from chest and leg, colonoscopy Past Anesthesia/Blood Transfusion Reactions: No Reported Reaction, Unable to Obtain Additional Past Anesthesia/Blood Transfusion Reaction / Comm: no family hx Smoking Status: Current every day smoker - Past Family History Mother Family Medical History: Unable to Obtain Medications and Allergies Home Medications Medication Instructions Recorded Confirmed Type Multivitamins, Thera [Multivitamin 1 tab PO DAILY 09/05/19 04/05/21 History (formulary)] Dextroamphetamine/Amphetamine 20 mg PO QAM 04/03/21 04/05/21 History [Adderall Xr] Ibuprofen [Motrin] 800 mg PO Q8H PRN 04/03/21 04/05/21 History HYDROcodone/APAP 5-325MG [[place] 1 tab PO Q6HR PRN 7 Days #30 tab 04/05/21 Rx 5-325] Allergies Allergy/AdvReac Type Severity Reaction Status Date / Time No Known Allergies Allergy Verified 04/05/21 11:36 Objective - Vital Signs Vital signs: Vital Signs Temp 98 F 04/14/25 09:41 Pulse 100 04/14/25 09:41 Resp 17 04/14/25 09:41 BP 135/89 04/14/25 09:41 Pulse Ox 96 04/14/25 09:41 FiO2 Intake & Output 04/13/25 04/14/25 04/14/25 18:59 06:59 18:59 Weight 107.501 kg - Constitutional General appearance: Present: cooperative - EENT Eyes: Present: EOMI ENT: Present: hearing grossly normal - Neck Neck: Present: normal ROM - Respiratory Respiratory: bilateral: CTA - Cardiovascular Rhythm: regular Heart sounds: normal: S1, S2 - Integumentary Integumentary: Present: normal turgor - Musculoskeletal Musculoskeletal: Present: gait normal - Psychiatric Psychiatric: Present: A&O x's 3, appropriate affect, intact judgment & insight - Additional findings Additional findings: Breast Exam: BRA: 38 C Inspection: Bilateral grade 2 ptosis, asymmetry of the nipple areolar complex with the right nipple areolar complex approximately 3 cm higher than the left Palpation: Right breast: Multi positional exam fibrocystic changes, no dominant masses or nodules of concern post op surgical and radiation changes Right axilla: No discrete adenopathy of concern Left breast: Multi positional exam fibrocystic changes no dominant masses or nodules of concern Left axilla: No adenopathy of concern Assessment and Plan Assessment: Impression: [id number]; stage IIB Patient is status post right breast lumpectomy/radiation therapy/chemotherapy/completed Keytruda Adderall for focus Patient is concerned regarding asymmetry between the right and left nipple areolar complex Plan: Left breast mastopexy, partial reduction of tissue bilateral mammogram prior to mastopexy clearance Dr. Jeffers Patient understands risks and benefits and wishes to proceed. Risk include but are not limited to bleeding, infection, reaction to the anesthetic. She understands the breast will not be exactly symmetric but will be more symmetric than they are now. She is given the option of seeing a plastic surgeon and declined. Functional assessment: Arm abduction past Preoperative education kit given to patient CC: Dr. Jeffers
== END ==
LOC: WWCWWP 09:35
PROVIDERS: ATTEND Surgery
DX: F17.200 Nicotine dependence, unspecified, uncomplicated (principal); Z17.32 Human epidermal growth factor receptor 2 negative status; Z17.22 Progesterone receptor negative status; Z98.890 Other specified postprocedural states; Z92.3 Personal history of irradiation